=== PATIENT | female | born 1975 | race American Indian/Alaskan Native ===

== ENCOUNTER 2016-12-07 13:23 | Observation (INO) | payer OTHER ==
[2016-12-07 13:32] VITALS: TEMP 98.1
--- NOTE | 2016-12-07 14:07 | ED PDOC ---
Arrival/HPI - General Chief Complaint: Abdominal Pain Time Seen by Provider: 12/07/16 13:27 - History of Present Illness Narrative History of Present Illness (Text): 41 year old female with a past medical history of PCOS and DM who is presenting with one week of lower abdominal pain and intermenstrual bleeding. She states that the pain was initially a 3/10, responded to Naproxen, but in the past day has worsened acutely since 11:00 and is associated with nausea and vomiting. LMP was 11/28/16 12/07/16 20:35 (Compa Ruiz) Past Medical History - Provider Review Nursing Documentation Reviewed: Yes - Cardiac Hx Cardiac Disorders: No - Pulmonary Hx Respiratory Disorders: No - Neurological Hx Neurological Disorder: No - HEENT Hx HEENT Disorder: No - Renal Hx Renal Disorder: No - Endocrine/Metabolic Hx Endocrine Disorders: Yes Hx Diabetes Mellitus Type 2: Yes Hx Hypothyroidism: Yes - Hematological/Oncological Hx Blood Disorders: No - Integumentary Hx Dermatological Disorder: No - Musculoskeletal/Rheumatological Hx Musculoskeletal Disorders: Yes Hx Arthritis: Yes Hx Fractures: Yes (left tibia as a child) - Gastrointestinal Hx Gastrointestinal Disorders: No - Genitourinary/Gynecological Hx Genitourinary Disorders: No - Psychiatric Hx Psychophysiologic Disorder: No Hx Substance Use: Yes (marijuana) - Surgical History Hx Cholecystectomy: Yes Other/Comment: lt tibia sx Family/Social History - Physician Review Nursing Documentation Reviewed: Yes Family/Social History: No Known Family HX Smoking Status: Light Smoker < 10 Cigarettes Daily Hx Alcohol Use: No Hx Substance Use: Yes (marijuana) Substance used: thc Allergies/Home Meds Allergies/Adverse Reactions: Allergies tomato Allergy (Verified 12/07/16 13:32) RASH Home Medications: Home Meds Medication Instructions Recorded Confirmed Levothyroxine [Synthroid] 0 mg PO DAILY 12/07/16 12/07/16 Meloxicam [Mobic] 15 mg PO DAILY 12/07/16 12/07/16 MetFORMIN [glucoPHAGE] 500 mg PO DAILY 12/07/16 12/07/16 Review of Systems - Review of Systems Constitutional: absent: Fatigue, Weight Change, Fevers Eyes: absent: Vision Changes, Photophobia ENT: absent: Hearing Changes, Tinnitus, Epistaxis Respiratory: absent: SOB, Sputum, Wheezing Cardiovascular: absent: Chest Pain, Palpitations, Edema Gastrointestinal: Abdominal Pain, Diarrhea, Vomiting Genitourinary Female: Vaginal Bleeding. absent: Dysuria, Frequency Skin: Normal. absent: Rash, Pruritis, Laceration Neurological: Normal. absent: Headache, Speech Changes Hemo/Lymphatic: absent: Easy Bleeding, Easy Bruising Psychiatric: absent: Anxiety, Depression Physical Exam Temperature: Afebrile Blood Pressure: Normal Pulse: Regular Respiratory Rate: Normal Appearance: Positive for: Uncomfortable Pain Distress: Moderate Mental Status: Positive for: Alert and Oriented X 3 - Systems Exam Head: Present: Atraumatic, Normocephalic Pupils: Present: PERRL Extroacular Muscles: Present: EOMI Conjunctiva: Present: Normal Mouth: Present: Moist Mucous Membranes Neck: No: JVD, Lymphadenopathy Respiratory/Chest: Present: Clear to Auscultation. No: Respiratory Distress Cardiovascular: Present: Regular Rate and Rhythm, Normal S1, S2 Abdomen: Present: Tenderness (midline), Normal Bowel Sounds. No: Distention, Peritoneal Signs, Guarding Upper Extremity: Present: Normal Inspection, NORMAL PULSES Neurological: Present: CN II-XII Intact, Speech Normal Skin: No: Warm, Dry Psychiatric: Present: Alert, Oriented x 3, Normal Insight Vital Signs Temp Pulse Resp BP Pulse Ox 12/07/16 19:01 72 18 115/64 98 12/07/16 17:23 75 18 117/70 100 12/07/16 15:23 74 18 112/71 97 12/07/16 14:52 76 18 135/71 99 12/07/16 13:29 98.1 F 89 16 130/85 99 Medical Decision Making ED Course and Treatment: Seen and examined with resident. 41 year old F p/w abdominal pain x 1 week with vomiting. On exam, no guarding or rebound. (Vincent Peña) CBC, CMP, UA were equivocal. CT A/P with IV contrast IMPRESSION: 620 mm complex cystic lesion seen at the cul -de-sac/left side of the lower uterine segment suspicious for either complex adnexal changes or possible hydrosalpinx. Follow-up transvaginal pelvic ultrasound is advised. 2. 2.6 cm left adrenal nodule. Follow-up MRI is advised to exclude potential malignancy as this density is not low left to prove a benign adenoma here. A tiny nodules too small to characterize at the right adrenal gland. 3. Prior cholecystectomy. TVUS: FINDINGS: Uterus/cervix: Probable fundal fibroid anteriorly measures 2.5 x 2.9 cm Nabothian cysts in the cervix. Normal endometrial stripe thickness. 1 cm Right ovary: Blood flow is noted within both ovaries. Left ovary: Blood flow documented. There is a complex appearing septated cysts or multiple loculated cysts in the left ovary including a 4 x 3 x 3.4 cm collection which may represent a hemorrhagic cyst however is nonspecific in appearance. There is an adjacent small simple cyst in the left ovary. Free fluid: No free fluid. IMPRESSION: 1. Blood flow is noted within both ovaries. 2. There is a complex appearing septated cysts or multiple loculated cysts in the left ovary including a 4 x 3 x 3.4 cm collection which may represent a hemorrhagic cyst however is nonspecific in appearance. There is an adjacent small simple cyst in the left ovary. 12/07/16 20:22 (Compa Ruiz) - Lab Interpretations Lab Results: 12/07/16 14:20 12/07/16 14:20 Lab Results 12/07/16 14:20: Urine Color Yellow, Urine Appearance Clear, Urine pH 6.0, Ur Specific [place] >= 1.030, Urine Protein Trace H, Urine Glucose (UA) Negative, Urine Ketones Negative, Urine Blood Trace-intact H, Urine Nitrate Negative, Urine Bilirubin Negative, Urine Urobilinogen 0.2, Ur Leukocyte Esterase Negative , Urine RBC 0 - 2, Urine WBC 0 - 2, Ur Epithelial Cells 4 - 5, Calcium Oxalate Crystal Few, Urine Bacteria Few, Urine HCG, Qual Negative 12/07/16 14:20: Sodium 141, Potassium 3.4 L, Chloride 105, Carbon Dioxide 27, Anion Gap 12, BUN 8, Creatinine 0.6, Est GFR ( Amer) > 60, Est GFR (Non- Af Amer) > 60, Random Glucose 109, Calcium 9.0, Total Bilirubin 0.9, AST 17, ALT 28, Alkaline Phosphatase 60, Total Protein 7.0, Albumin 4.1, Globulin 2.9, Albumin/Globulin Ratio 1.4, Lipase 627 H 12/07/16 14:20: WBC 8.1, RBC 4.24, Hgb 12.6, Hct 38.3, MCV 90.3, MCH 29.7, MCHC 32.9, RDW 14.2, Plt Count 291, MPV 9.9, Gran % 61.7, Lymph % (Auto) 25.7, Smith % (Auto) 9.8 H, Eos % (Auto) 2.6, Baso % (Auto) 0.2, Gran # 4.97, Lymph # 2.1, Smith # 0.8 H, Eos # 0.2, Baso # 0.02 - RAD Interpretation Radiology Orders: 12/07/16 14:16 ABD & PELVIS IV CONTRAST ONLY [CT] Stat 12/07/16 17:44 TRANSVAGINAL [US] Stat - Medication Orders Current Medication Orders: Discontinued Medications Sodium Chloride (Sodium Chloride 0.9%) 1,000 mls @ 999 mls/hr IV .Q1H1M STA Stop: 12/07/16 15:13 Last Admin: 12/07/16 14:39 Dose: 999 mls/hr eMAR Start Stop Document 12/07/16 14:39 [facility] (Rec: 12/07/16 14:40 [place] [id number]) Intravenous Solution Start Date 12/07/16 Start Time 14:40 Morphine Sulfate (Morphine) 4 mg IVP STAT STA Stop: 12/07/16 14:18 Last Admin: 12/07/16 14:40 Dose: 4 mg MAR Pain Assessment Document 12/07/16 14:40 NH (Rec: 12/07/16 14:40 [place] [id number]) Pain Reassessment Is this a pain reassessment? No Sleep Is patient sleeping during reassessment? No Presence of Pain Presence of Pain Yes Pain Scale Used Pain Scale Used Numeric Location Pain Location Body Site Abdomen Description Description Constant Intensity of Pain at present 8 Acceptable Level of Pain 2 IVP Administration Document 12/07/16 14:40 [facility] (Rec: 12/07/16 14:[address] [facility] [id number] Charges for Administration # of IVP Administrations 1 Morphine Sulfate (Morphine) 2 mg IVP STAT STA Stop: 12/07/16 20:16 Ondansetron HCl (Zofran Inj) 4 mg IVP STAT STA Stop: 12/07/16 14:19 Last Admin: 12/07/16 14:42 Dose: 4 mg IVP Administration Document 12/07/16 14:42 NH (Rec: 12/07/16 14:42 [place] [id number]) Charges for Administration # of IVP Administrations 1 Ondansetron HCl (Zofran Inj) 4 mg IVP STAT STA Stop: 12/07/16 20:16 ED OBSERVATION Date of observation admission: 12/07/16 Time of observation admission: 14:30 - Observation admission statement Patient is being placed in observation because:: abdominal pain (Compa Ruiz) - Goals of Observation Goals of observation are:: CT imaging (Compa Ruiz) - Progress Note Progress Note: 12/07/16 14:30 Patient with abdominal tenderness, pending CT. 12/07/16 16:[address], patient in NAD. 12/07/16 18:27 CT shows adnexal cyst, TVUS recommended. TVUS read pending, patient in NAD. 12/07/16 19:43 Patient agreeable to be discharged.Discussed findings of the TVUS. Patient is tolerating PO intake well. Patient's pain has resolved. Informed her to follow up with her OBGYN. 12/07/16 20:35 (Compa Ruiz) Disposition/Present on Arrival - Present on Arrival Any Indicators Present on Arrival: No History of DVT/PE: No History of Uncontrolled Diabetes: No Urinary Catheter: No History of Decub. Ulcer: No History Surgical Site Infection Following: None - Disposition Have Diagnosis and Disposition been Completed?: Yes Disposition Time: 20:38 Patient Plan: Discharge - Disposition Diagnosis: Ovarian cyst Disposition: HOME/ ROUTINE Patient Problems: Current Active Problems Problem Status Onset Ovarian cyst Acute Condition: FAIR Discharge Instructions (ExitCare): Ovarian Cyst (ED), Polycystic Ovarian Syndrome (ED) Additional Instructions: [Mrs. David], thank you for letting us take care of you today. Your provider was [Dr. Peña and Dr. Ruiz]. You were treated for [Ovarian Cyst]. The emergency medical care you received today was directed at your acute symptoms. If you were prescribed any medication, please fill it and take as directed. It may take several days for your symptoms to resolve. Return to the Emergency Department if your symptoms worsen, do not improve, or if you have any other problems. Please contact your doctor or call one of the physicians/clinics you have been referred to that are listed on the Patient Visit Information form that is included in your discharge packet. Bring any paperwork you were given at discharge with you along with any medications you are taking to your follow up visit. Our treatment cannot replace ongoing medical care by a primary care provider (PCP) outside of the emergency department. Thank you for allowing the [facility] team to be part of your care today. If you had an X-Ray or CT scan: A Radiologist will review the ED reading if any change in treatment is needed we will contact you. If you had a blood, urine, or wound culture: It will take several days for the results, if any change in treatment is needed we will contact you. If you had an STI test: It will take 48 hours for the results. Please call after 1 week if you have not heard back. Referrals: PCP,NO [Primary Care Provider] - Follow up with primary Forms: [employer] (Danish)
[2016-12-07] MEDS ORDERED: Sodium Chloride 0.9% 1,000 ML IV STA (14:13)
[2016-12-07] MEDS ORDERED: Morphine 4 mg/ml ISec IVP STA (14:17)
[2016-12-07 14:51] LABS: BASO # 0.02 K/mm3 (0.0-2.0); BASO % 0.2 % (0.0-3.0); EOS # 0.2 (0.0-0.7); EOS % 2.6 % (1.5-5.0); GRAN # 4.97 (1.4-6.5); GRAN % 61.7 % (50.0-68.0); HEMATOCRIT 38.3 % (36.0-48.0); LYMPH # 2.1 (1.2-3.4); LYMPH % 25.7 % (22.0-35.0); MEAN CELL VOLUME 90.3 fl (80.0-105.0); MEAN CORPUSCULAR HEMOGLOBIN 29.7 pg (25.0-35.0); MEAN CORPUSCULAR HGB CONC 32.9 g/dl (31.0-37.0); MEAN PLATELET VOLUME 9.9 fl (7.0-11.0); MONO # 0.8 (0.1-0.6); MONO % 9.8 % (1.0-6.0); RED CELL DISTRIBUTION WIDTH 14.2 % (11.5-14.5); WHITE BLOOD COUNT 8.1 10^3/ul (4.5-11.0)
[2016-12-07 14:53] LABS: URINE BILIRUBIN NEGATIVE (NEGATIVE); URINE BLOOD TRACE-INTACT (NEGATIVE); URINE GLUCOSE (UA) NEGATIVE (NEGATIVE); URINE KETONE NEGATIVE (NEGATIVE); URINE LEUKOCYTE ESTERASE NEGATIVE Leu/uL (NEGATIVE); URINE PROTEIN TRACE mg/dL (<30 mg/dL); URINE UROBILINOGEN 0.2 E.U./dL (<1 E.U./dL)
[2016-12-07 14:59] LABS: URINE APPEARANCE CLEAR (CLEAR); URINE COLOR YELLOW (YELLOW)
[2016-12-07 15:01] LABS: ALB/GLOB RATIO 1.4 (1.1-1.8); ALKALINE PHOSPHATASE 60 U/L (38-126); ALT/SGPT 28 U/L (7-56); AST/SGOT 17 U/L (14-36); BILIRUBIN,TOTAL 0.9 mg/dL (0.2-1.3); BLOOD UREA NITROGEN 8 mg/dL (7-21); CARBON DIOXIDE 27 mmol/L (21-33); CHLORIDE 105 mmol/L (98-107); GFR AFRICAN-AMERICAN > 60; GLUCOSE,RANDOM 109 mg/dL (70-110); LIPASE 627 U/L (23-300); POTASSIUM 3.4 mmol/L (3.6-5.0); SODIUM 141 mmol/L (132-148)
[2016-12-07 15:04] LABS: URINE RBC 0 - 2 /hpf (0-2); URINE WBC 0 - 2 /hpf (0-6)
[2016-12-07 15:05] LABS: URINE BACTERIA FEW (NEG); URINE CALCIUM OXALATE CRYSTALS FEW /hpf
[2016-12-07] MEDS ORDERED: Iohexol 350 MG/100 ML VIAL ONE (16:48)
--- NOTE | 2016-12-07 17:34 | CT ---
PROCEDURE: CT Abdomen and Pelvis with contrast HISTORY: abdominal pain COMPARISON: None. TECHNIQUE: Following the intravenous administration of iodinated contrast material, a CT examination of the abdomen and pelvis performed from the domes of the diaphragms to the symphysis pubis with reformatted datasets provided not only axial but also sagittal and coronal planes. Oral contrast was not administered as per referring physician request. Contrast dose: Omnipaque 350, 100 cc. Radiation dose: Total exam DLP = 1146.10 mGy-cm. This CT exam was performed using one or more of the following dose reduction techniques: Automated exposure control, adjustment of the mA and/or kV according to patient size, and/or use of iterative reconstruction technique. FINDINGS: LOWER THORAX: Unremarkable. LIVER: Unremarkable. No gross lesion or ductal dilatation. GALLBLADDER AND BILE DUCTS: Prior cholecystectomy. PANCREAS: Unremarkable. No gross lesion or ductal dilatation. SPLEEN: Unremarkable. ADRENALS: Bilateral adrenal nodules are identified too small to characterize in the right of measuring only 8 mm with a 2.0 cm left adrenal nodule which appears relatively lucent but measures 20 hounsfield units and cannot be proven to be benign at this time. Follow-up mri with chemical shift is advised to evaluate for possible malignant lesion here versus benign adenoma. KIDNEYS AND URETERS: Unremarkable. No hydronephrosis. No solid mass. VASCULATURE: Unremarkable. No aortic aneurysm. BOWEL: Unremarkable. No obstruction. No gross mural thickening. APPENDIX: Normal appendix. PERITONEUM: Unremarkable. No free fluid. No free air. LYMPH NODES: Unremarkable. No enlarged lymph nodes. BLADDER: Unremarkable. REPRODUCTIVE: Complex cystic structure seen at the cul-de-sac/ left side of the lower uterine segment suspicious for prominent left adnexal cystic change measuring 6.8 x 3.7 cm. Hydrosalpinx is not completely excluded here. Transvaginal pelvic ultrasound is advised for correlation. BONES: No acute fracture. OTHER FINDINGS: Small umbilical hernia is identified containing only mesenteric fat. IMPRESSION: 1. 620 cm complex cystic lesion seen at the cul-de-sac/left side of the lower uterine segment suspicious for either complex adnexal changes or possible hydrosalpinx. Follow-up transvaginal pelvic ultrasound is advised. 2. 2.6 cm left adrenal nodule. Follow-up MRI is advised to exclude potential malignancy as this density is not low left to prove a benign adenoma here. A tiny nodules too small to characterize at the right adrenal gland. 3. Prior cholecystectomy.
[2016-12-07 19:02] VITALS: BP 115/64; PULSE 72; RESP 18; O2SAT 98
[2016-12-07] MEDS ORDERED: Morphine 2 mg/ml ISec IVP STA (20:15)
--- NOTE | 2016-12-08 08:52 | US ---
HISTORY: abd pain, vag bleeding, r/o torsion COMPARISON: None available. TECHNIQUE: Transabdominal and transvaginal FINDINGS: UTERUS: Measures 10.0 x 6.7 x 6.7 cm. Anterior fundal subserosal fibroid, 0 4.2 x 4.1 x 3.9 cm. No other discrete mass identified ENDOMETRIUM: Measures 11 mm in diameter. Unremarkable. CERVIX: No cervical abnormality identified. RIGHT OVARY: Measures 2.8 x 2.1 x 3.1 cm. No solid mass. Normal flow. LEFT OVARY: Measures 7.3 x 3.4 x 4.0 cm. Complex cystic mass versus hydrosalpinx. Low level homogeneous internal echoes. Possible septated cyst versus hydrosalpinx. This could also represent 2 adjacent complex cysts. This measures approximately 3.1 x 4.8 by 3.1 cm. Normal flow. FREE FLUID: No significant free fluid noted. OTHER FINDINGS: None. IMPRESSION: Complex left adnexal cystic structure, septated cyst versus 2 adjacent cysts versus hydrosalpinx. 4.8 cm greatest dimension. Recommend followup transvaginal pelvic ultrasound examination 6-8 weeks. No other significant abnormality. Preliminary interpretation of this examination was reported by [facility] at 7:50 p.m. on 12/07/2016. There is concurrence of this report with the preliminary interpretation.
== END 2016-12-07 21:18 | disposition home or self-care (01) ==
LOC: ED 13:23 → EROBSV 14:30
PROVIDERS: ADMIT Student in an Organized Health Care Education/Training Program; ATTEND Student in an Organized Health Care Education/Training Program
DX: N83.202 Unspecified ovarian cyst, left side (principal)
CPT/HCPCS: 74177; 76830; 80053; 81001; 83690; 84703; 85025; 96374; 96375; 99285; G0378; J2270; J2405; J7040; Q9967

== ENCOUNTER 2017-05-06 11:49 | Inpatient (IN) | payer OTHER ==
[2017-05-06 11:54] VITALS: BMI 36.0
[2017-05-06] MEDS ORDERED: Sodium Chloride 0.9% 1,000 ML IV STA (12:10)
[2017-05-06] MEDS ORDERED: Morphine 4 mg/ml ISec IVP STA (12:17)
--- NOTE | 2017-05-06 12:19 | ED PDOC ---
Arrival/HPI - General Chief Complaint: GI Problem Time Seen by Provider: 05/06/17 12:10 Historian: Patient - History of Present Illness Narrative History of Present Illness (Text): you were treated in the ED today for nausea/vomiting with dark color and epigastric discomfort but otherwise without any headache/dizziness/difficulty breathing/chest pain/numbness/tingling/loss of limb function/pain with urination. Symptom Onset: Gradual Symptom Course: Unchanged Quality: Aching Severity Level: 5 Activities at Onset: Rest Context: Sitting Past Medical History - Provider Review Nursing Documentation Reviewed: Yes - Travel History Have you recently traveled outside [place] w/in the past 3 mons?: No - Infectious Disease Hx of Infectious Diseases: None - Cardiac Hx Cardiac Disorders: No - Pulmonary Hx Respiratory Disorders: No - Neurological Hx Neurological Disorder: No - HEENT Hx HEENT Disorder: No - Renal Hx Renal Disorder: No - Endocrine/Metabolic Hx Endocrine Disorders: Yes Hx Diabetes Mellitus Type 2: Yes Hx Hypothyroidism: Yes - Hematological/Oncological Hx Blood Disorders: No - Integumentary Hx Dermatological Disorder: No - Musculoskeletal/Rheumatological Hx Musculoskeletal Disorders: Yes Hx Arthritis: Yes Hx Fractures: Yes (left tibia as a child) - Gastrointestinal Hx Gastrointestinal Disorders: No - Genitourinary/Gynecological Hx Genitourinary Disorders: No - Psychiatric Hx Psychophysiologic Disorder: No Hx Substance Use: Yes (marijuana) - Surgical History Hx Cholecystectomy: Yes Other/Comment: lt tibia sx - Anesthesia Hx Anesthesia: Yes Hx Anesthesia Reactions: No Hx Malignant Hyperthermia: No Family/Social History - Physician Review Nursing Documentation Reviewed: Yes Family/Social History: No Known Family HX Smoking Status: Light Smoker < 10 Cigarettes Daily Hx Alcohol Use: No Hx Substance Use: Yes (marijuana) Substance used: thc Allergies/Home Meds Allergies/Adverse Reactions: Allergies tomato Allergy (Verified 12/07/16 13:32) RASH Home Medications: Home Meds Medication Instructions Recorded Confirmed No Known Home Med 05/06/17 05/06/17 Review of Systems - Review of Systems Constitutional: Normal Eyes: Normal ENT: Normal Respiratory: Normal Cardiovascular: Normal Gastrointestinal: Abdominal Pain, Nausea, Vomiting, Hematemesis Genitourinary Female: Normal Musculoskeletal: Normal Skin: Normal Neurological: Normal Endocrine: Normal Hemo/Lymphatic: Normal Psychiatric: Normal Physical Exam Vital Signs Reviewed: Yes Vital Signs Temp Pulse Resp BP Pulse Ox 05/06/17 16:00 86 18 128/80 98 05/06/17 13:55 91 H 18 130/82 98 05/06/17 12:03 98.2 F 106 H 20 171/131 H 98 Temperature: Afebrile Blood Pressure: Hypertensive Pulse: Tachycardic Respiratory Rate: Normal Appearance: Positive for: Uncomfortable Pain Distress: None Mental Status: Positive for: Alert and Oriented X 3 Finger Stick Blood Glucose: 105 - Systems Exam Head: Present: Atraumatic, Normocephalic Pupils: Present: PERRL Extroacular Muscles: Present: EOMI Conjunctiva: Present: Normal Ears: Present: Normal Mouth: Present: Moist Mucous Membranes Pharnyx: Present: Normal Nose (Internal): Present: Normal Inspection Neck: Present: Normal Range of Motion Respiratory/Chest: Present: Clear to Auscultation, Good Air Exchange Cardiovascular: Present: Regular Rate and Rhythm Abdomen: Present: Tenderness, Other (epigastric discomfort, wo any other tenderness). No: Distention, Normal Bowel Sounds, Peritoneal Signs, Rebound, Guarding, McBurney's Point Tender, Rovsing's Sign Present, Hernias, Feeding Tubes, Ostomy Tubes, Mass/Organomegaly, Scars Back: Present: Normal Inspection Upper Extremity: Present: Normal Inspection Lower Extremity: Present: Normal Inspection Neurological: Present: GCS=15, CN II-XII Intact, Speech Normal, Motor Func Grossly Intact Skin: Present: Warm, Normal Color Psychiatric: Present: Alert, Oriented x 3, Normal Insight, Normal Concentration Medical Decision Making ED Course and Treatment: you were treated in the ED today for nausea/vomiting with dark color and epigastric discomfort but otherwise without any headache/dizziness/difficulty breathing/chest pain/numbness/tingling/loss of limb function/pain with urination. You were otherwise breathing easily, pink moist lips, talking easily , good strength/sensation, alert/oriented, walking easily, clear lungs, mild epigastric abdomen tenderness, no fever temp 98.2, fast heart rate 106, stable breathing rate 20, excellent oxygen level 98% room air, elevated blood pressure 171/31 which we recommend repeat in 2-3 days primary care office to determine further treatment, you have blood tests no infection count WBC 9.2, stable blood level hemoglobin 13.9/platelets 346, stable chemistry sodium 143, potassium 3.5, bicarbonate 23, chloride 107, bun 7, creatinine 0.8, glucose 107 , liver AST/ALT 21/24, Liver Alklaline Phosphatase 78, Liver bilirubin 0.6, magnesium, heart blood test normal, urine test, urine test negative, urine drug screen positive for canabinoids/opiates/cocaine, radiology ct chest no acute pathology or suspicious lesion and ct abdomen/pelvis right and left adrenal lesions/re-demonstrated complex cystic mass posterior to the uterus on the left 6.6x4cm/interval development of right adnexal cyst 1.3cm, ECG sinus tachycardia, protonix/intravenous fluids/morphine/zofran, observation done in the ED without improvement, counselled to stop using drugs and you had persistent epigastric discomfort thus will admit. 05/06/17 15:52 05/06/17 15:54 05/06/17 18:03 05/06/17 18:23 d/w Dr. Blake who will admit to observation. - Lab Interpretations Lab Results: 05/06/17 12:17 05/06/17 12:17 Lab Results 05/06/17 15:50: pO2 40, VBG pH 7.31 L, VBG pCO2 51.0, VBG HCO3 25.7, VBG Total CO2 27.3, VBG O2 Sat (Calc) 79.0 H, VBG Base Excess -1.2 L, VBG Potassium 3.8, Glucose 90, Lactate 0.9, FiO2 21.0, Sodium 140.0, Chloride 109.0 H, Venous Blood Potassium 3.8 05/06/17 14:10: Urine Opiates Screen Positive H, Urine Methadone Screen Negative , Ur Barbiturates Screen Negative, Ur Phencyclidine Scrn Negative, Ur Amphetamines Screen Negative, U Benzodiazepines Scrn Negative, U Oth Cocaine Metabols Positive H, U Cannabinoids Screen Positive H 05/06/17 12:40: Urine Color Yellow, Urine Appearance Clear, Urine pH 8.0, Ur Specific Wood 1.015, Urine Protein Trace H, Urine Glucose (UA) Negative, Urine Ketones Trace H, Urine Blood Trace-intact H, Urine Nitrate Negative, Urine Bilirubin Negative, Urine Urobilinogen 0.2, Ur Leukocyte Esterase Negative , Urine RBC 2 - 5, Urine WBC 0 - 2, Ur Epithelial Cells 4 - 5, Amorphous Sediment Moderate, Urine Bacteria Many, Urine Other Uyeast 05/06/17 12:30: pO2 150 H, VBG pH 7.44 H, VBG pCO2 33.0 L, VBG HCO3 22.4, VBG Total CO2 23.4, VBG O2 Sat (Calc) 100.0 H, VBG Base Excess -1.1 L, VBG Potassium 3.5 L, Glucose 108 H, Lactate 2.1, FiO2 21.0, Sodium 140.0, Chloride 108.0 H, Venous Blood Potassium 3.5 L 05/06/17 12:17: PT 12.0, INR 1.04, APTT 26.5 05/06/17 12:17: WBC 9.2, RBC 4.70, Hgb 13.9, Hct 41.7, MCV 88.7, MCH 29.6, MCHC 33.3, RDW 13.9, Plt Count 346, MPV 9.6, Gran % 68.8 H, Lymph % (Auto) 23.0, Lake % (Auto) 7.8 H, Eos % (Auto) 0.3 L, Baso % (Auto) 0.1, Gran # 6.31, Lymph # (Auto) 2.1, Lake # (Auto) 0.7 H, Eos # (Auto) 0.0, Baso # (Auto) 0.01 05/06/17 12:17: Sodium 145, Potassium 3.5 L, Chloride 107, Carbon Dioxide 23, Anion Gap 18, BUN 7, Creatinine 0.8, Est GFR ( Amer) > 60, Est GFR (Non- Af Amer) > 60, Random Glucose 107, Calcium 10.5, Total Bilirubin 0.6, AST 21, ALT 24, Alkaline Phosphatase 78, Troponin I < 0.01, Total Protein 8.2, Albumin 4.6, Globulin 3.6, Albumin/Globulin Ratio 1.3, Lipase 360 H 05/06/17 12:15: Blood Type B POSITIVE, Antibody Screen Negative, BBK History Checked No verified bt 05/06/17 12:10: POC Glucose (mg/dL) 105 - RAD Interpretation Radiology Orders: 05/06/17 12:11 CHEST,ABD,PEL W/IV CONT ONLY [CT] Stat - EKG Interpretation Interpreted by ED Physician: Yes (sinus tachycardia) Type: 12 lead EKG - Medication Orders Current Medication Orders: Discontinued Medications Sodium Chloride (Sodium Chloride 0.9%) 1,000 mls @ 999 mls/hr IV .Q1H1M STA Stop: 05/06/17 13:10 Last Admin: 05/06/17 12:17 Dose: 999 mls/hr eMAR Start Stop Document 05/06/17 12:17 EQ (Rec: 05/06/17 12:18 EQ [id number]) Intravenous Solution Start Date 05/06/17 Start Time 12:17 Morphine Sulfate (Morphine) 4 mg IVP STAT STA Stop: 05/06/17 12:18 Last Admin: 05/06/17 12:32 Dose: 4 mg MAR Pain Assessment Document 05/06/17 12:32 EQ (Rec: 05/06/17 12:33 EQ [id number]) Pain Reassessment Is this a pain reassessment? No Sleep Is patient sleeping during reassessment? No Presence of Pain Presence of Pain Yes Pain Scale Used Pain Scale Used Numeric Location Upper or Lower Upper Pain Location Body Site Abdomen Description Description Constant Intensity of Pain at present 10 IVP Administration Document 05/06/17 12:32 EQ (Rec: 05/06/17 12:33 EQ [id number]) Charges for Administration # of IVP Administrations 1 Ondansetron HCl (Zofran Inj) 4 mg IVP STAT STA Stop: 05/06/17 12:11 Last Admin: 05/06/17 12:18 Dose: 4 mg IVP Administration Document 05/06/17 12:18 EQ (Rec: 05/06/17 12:18 EQ [id number]) Charges for Administration # of IVP Administrations 1 Ondansetron HCl (Zofran Inj) 4 mg IVP STAT STA Stop: 05/06/17 17:36 Last Admin: 05/06/17 17:37 Dose: 4 mg IVP Administration Document 05/06/17 17:37 EQ (Rec: 05/06/17 17:37 EQ [id number]) Charges for Administration # of IVP Administrations 1 Pantoprazole Sodium (Protonix Inj) 40 mg IVP STAT STA Stop: 05/06/17 12:14 Last Admin: 05/06/17 12:18 Dose: 40 mg IVP Administration Document 05/06/17 12:18 EQ (Rec: 05/06/17 12:18 EQ [id number]) Charges for Administration # of IVP Administrations 1 Pantoprazole Sodium (Protonix Inj) 40 mg IVP STAT STA Stop: 05/06/17 16:54 Last Admin: 05/06/17 17:36 Dose: 40 mg IVP Administration Document 05/06/17 17:36 EQ (Rec: 05/06/17 17:36 EQ [id number]) Charges for Administration # of IVP Administrations 1 Disposition/Present on Arrival - Present on Arrival Any Indicators Present on Arrival: No History of DVT/PE: No History of Uncontrolled Diabetes: No Urinary Catheter: No History of Decub. Ulcer: No History Surgical Site Infection Following: None - Disposition Have Diagnosis and Disposition been Completed?: Yes Diagnosis: Hematemesis, Gastritis Disposition: HOSPITALIZED Disposition Time: 18:25 Patient Plan: Admission Condition: STABLE Referrals: Reyna Sanders MD [Primary Care Provider] - Follow up with primary Forms: [employer] ([place]ian)
[2017-05-06 12:26] LABS: BASO # 0.01 K/mm3 (0.0-2.0); BASO % 0.1 % (0.0-3.0); EOS % 0.3 % (1.5-5.0); GRAN # 6.31 (1.4-6.5); GRAN % 68.8 % (50.0-68.0); HEMOGLOBIN 13.9 g/dL (12.0-16.0); LYMPH # 2.1 (1.2-3.4); MEAN CELL VOLUME 88.7 fl (80.0-105.0); MEAN CORPUSCULAR HEMOGLOBIN 29.6 pg (25.0-35.0); MEAN CORPUSCULAR HGB CONC 33.3 g/dl (31.0-37.0); MEAN PLATELET VOLUME 9.6 fl (7.0-11.0); MONO # 0.7 (0.1-0.6); MONO % 7.8 % (1.0-6.0); RBC 4.7 10^6/uL (3.5-6.1); RED CELL DISTRIBUTION WIDTH 13.9 % (11.5-14.5); WHITE BLOOD COUNT 9.2 10^3/ul (4.5-11.0)
[2017-05-06 12:35] LABS: INR 1.04 (0.93-1.08); PARTIAL THROMBOPLASTIN TIME 26.5 Seconds (25.1-36.5)
[2017-05-06 12:40] LABS: ALB/GLOB RATIO 1.3 (1.1-1.8); ALBUMIN 4.6 g/dL (3.0-4.8); ALT/SGPT 24 U/L (7-56); AST/SGOT 21 U/L (14-36); BLOOD UREA NITROGEN 7 mg/dL (7-21); CALCIUM 10.5 mg/dL (8.4-10.5); GFR AFRICAN-AMERICAN > 60; GFR NON-AFRICAN AMERICAN > 60; LIPASE 360 U/L (23-300)
[2017-05-06 12:41] LABS: VENOUS BLOOD GAS BASE EXCESS -1.1 mmol/L (0.0-2.0); VENOUS BLOOD GAS PO2 150 mm/Hg (30-55); VENOUS BLOOD PH 7.44 (7.32-7.43)
[2017-05-06 12:50] LABS: TROPONIN I < 0.01 ng/mL
[2017-05-06 12:53] LABS: URINE APPEARANCE CLEAR (CLEAR); URINE BILIRUBIN NEGATIVE (NEGATIVE); URINE BLOOD TRACE-INTACT (NEGATIVE); URINE COLOR YELLOW (YELLOW); URINE GLUCOSE (UA) NEGATIVE (NEGATIVE); URINE LEUKOCYTE ESTERASE NEGATIVE Leu/uL (NEGATIVE); URINE NITRATE NEGATIVE (NEGATIVE); URINE PROTEIN TRACE mg/dL (<30 mg/dL); URINE UROBILINOGEN 0.2 E.U./dL (<1 E.U./dL)
[2017-05-06 13:02] LABS: URINE WBC 0 - 2 /hpf (0-6)
[2017-05-06 13:03] LABS: URINE AMORPHOUS SEDIMENT MODERATE; URINE BACTERIA MANY (NEG)
[2017-05-06] MEDS ORDERED: Iohexol 350 MG/100 ML VIAL ONE (13:38)
--- NOTE | 2017-05-06 14:54 | CT ---
PROCEDURE: CT Chest, Abdomen and Pelvis with intravenous contrast HISTORY: abd pain COMPARISON: Comparison is made with the previous study dated 12/07/2016 TECHNIQUE: IV dose administered: 100 mL Omniscan 350. Axial and reformatted coronal and sagittal CT images of the chest abdomen and pelvis were obtained after IV contrast administration. Radiation dose: Total exam DLP = 1557.79 mGy-cm. This CT exam was performed using one or more of the following dose reduction techniques: Automated exposure control, adjustment of the mA and/or kV according to patient size, and/or use of iterative reconstruction technique. FINDINGS: CT CHEST WITH CONTRAST: LUNGS: Clear. No nodule, mass or consolidation. MEDIASTINUM: Unremarkable. Normal caliber aorta and pulmonary arterial trunk. No aortic dissection. Normal size heart. LYMPH NODES: Unremarkable. PLEURA: Unremarkable. No pneumothorax. No pleural fluid. BONES: Unremarkable. OTHER FINDINGS: None. CT ABDOMEN AND PELVIS: LIVER: Mild hepatomegaly is again noted. Mild hepatic steatosis is also noted. The portal vein is patent. No evidence of enhancing mass lesion in the liver. GALLBLADDER AND BILE DUCTS: Status post cholecystectomy. PANCREAS: Unremarkable. No gross lesion or ductal dilatation. SPLEEN: Unremarkable. ADRENALS: Left adrenal nodule/small mass measures 2.1 centimeter is noted at these slightly larger compared to the previous exam. No significant interval change in the right adrenal gland since the previous exam. There is low-attenuation nodule at the right adrenal gland measures 1 centimeter. KIDNEYS AND URETERS: Unremarkable. No hydronephrosis. No solid mass. VASCULATURE: Unremarkable. No aortic aneurysm. BOWEL: Unremarkable. No obstruction. No gross mural thickening. APPENDIX: Normal appendix. PERITONEUM: Unremarkable. No free fluid. No free air. LYMPH NODES: No evidence of retroperitoneal lymphadenopathy. There are mildly enlarged bilateral pelvic sidewall lymph nodes again noted BLADDER: The urinary bladder is not distended therefore cannot be evaluated. REPRODUCTIVE: The uterus is heterogeneous mildly enlarged. Again seen is a complex low-attenuation cystic mass lesion posterior and slightly to the left of the uterus measures 6.6 centimeter in the largest transverse diameter and 4 centimeter in the AP diameter. The right adnexa is mildly enlarged contains 1.3 centimeters cyst. BONES: No acute fracture. OTHER FINDINGS: None. IMPRESSION: No evidence of acute pathology or suspicious lesion in the chest. Left adrenal heterogeneous slightly low-attenuation nodule/small mass measures 2.1 centimeter may be slightly larger compared to the previous exam. Although this may represent benign adenoma, the possibility of malignancy is not totally excluded. Further assessment by MRI is suggested. 1 centimeter low-attenuation nodule at the right adrenal gland. Re- demonstrated is complex cystic mass lesion posterior to the uterus slightly to the left of the midline may represent large is left adnexal complex cyst or hydrosalpinx. Interval appearance of 1.3 centimeters cyst at the right adnexa.
[2017-05-06 15:26] LABS: BARBITURATES, UR NEGATIVE (NEGATIVE)
[2017-05-06 15:45] LABS: BENZODIAZEPINES, UR NEGATIVE (NEGATIVE); OPIATES, UR POSITIVE (NEGATIVE); PHENCYCLIDINE, UR NEGATIVE (NEGATIVE)
[2017-05-06 16:33] LABS: VENOUS BLOOD GAS BASE EXCESS -1.2 mmol/L (0.0-2.0); VENOUS BLOOD GAS PO2 40 mm/Hg (30-55); VENOUS BLOOD PH 7.31 (7.32-7.43)
--- NOTE | 2017-05-06 16:33 | CARD ---
APPROVED REPORT EKG Measurement Heart [id number] <Conclusion> Sinus tachycardia Minimal voltage criteria for LVH, may be normal variant Borderline ECG
[2017-05-06] MEDS ORDERED: Potassium Chloride 20 mEq ER Tab PO STA (19:05)
[2017-05-06] MEDS: Sodium Chloride 0.9% 1,000 ML IV SCH (19:55)
[2017-05-06] MEDS ORDERED: Morphine 2 mg/ml ISec IVP PRN (20:01)
[2017-05-06] MEDS ORDERED: Vitamins A & D Oint UD Foilpak TOP PRN (20:01)
--- NOTE | 2017-05-06 20:36 | CP.PCM.HP ---
<Lamont Aviles - Last Filed: 05/06/17 20:24> History of Present Illness - History of Present Illness History of Present Illness: Ms. David is a 41 year old female with a past medical history significant for DM2, hypothyroidism and cholelithiasis s/p cholecystectomy (2003) who presents with 36 hours of epigastric pain, nausea and greater than 10 episodes of coffee ground emesis. Patient reports that she was at work yesterday evening when she drank a cup of coffee and immediately become nauseated. She subsequently had multiple episodes of brown colored emesis with associated intermittent epigastric pain. This continued throughout the night and this morning she attempted to relieve the nausea by smoking marijuana. She reports that this marijuana did not taste like the marijuana she has smoked in the past and made her immediately feel diaphoretic with palpitations and increased body warmth. She denies any alleviated or aggravating factors and can only associate her symptoms with the coffee she drank. She endorses that this has happened before in the past, specifically when she had her cholecystectomy in 2003, but denies ever having any endoscopy/colonoscopy done. She also endorse that she has been having intermittent "really dark" stool that is hard to pass, causing her to strain and at times vomit. She denies sick contacts, recurrent NSAID use, alcohol consumption, fevers, chills, headache, dysphagia, chest pain, SOB, cough , wheezing, diarrhea, hematochezia, changes in her urine or voiding, skin changes or any numbness/tingling/weakness of any extremity. 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 Allergies: Tomato Home Medications: Metformin and Hypothyroidism Present on Admission - Present on Admission Any Indicators Present on Admission: No Review of Systems - Review of Systems Review of Systems: As per HPI, otherwise negative Past Patient History - Infectious Disease Hx of Infectious Diseases: None - Past Social History Smoking Status: Light Smoker < 10 Cigarettes Daily - CARDIAC Hx Cardiac Disorders: No - PULMONARY Hx Respiratory Disorders: No - NEUROLOGICAL Hx Neurological Disorder: No - HEENT Hx HEENT Problems: No - RENAL Hx Chronic Kidney Disease: No - ENDOCRINE/METABOLIC Hx Endocrine Disorders: Yes Hx Diabetes Mellitus Type 2: Yes Hx Hypothyroidism: Yes - HEMATOLOGICAL/ONCOLOGICAL Hx Blood Disorders: No - INTEGUMENTARY Hx Dermatological Problems: No - MUSCULOSKELETAL/RHEUMATOLOGICAL Hx Musculoskeletal Disorders: Yes Hx Arthritis: Yes Hx Fractures: Yes (left tibia as a child) - GASTROINTESTINAL Hx Gastrointestinal Disorders: No - GENITOURINARY/GYNECOLOGICAL Hx Genitourinary Disorders: No - PSYCHIATRIC Hx Psychophysiologic Disorder: No Hx Substance Use: Yes (marijuana) - SURGICAL HISTORY Hx Cholecystectomy: Yes Other/Comment: lt tibia sx - ANESTHESIA Hx Anesthesia: Yes Hx Anesthesia Reactions: No Hx Malignant Hyperthermia: No Meds Allergies/Adverse Reactions: Allergies Allergy/AdvReac Type Severity Reaction Status Date / Time tomato Allergy RASH Verified 12/07/16 13:32 Physical Exam - Constitutional Appears: Non-toxic, No Acute Distress - Head Exam Head Exam: ATRAUMATIC, NORMOCEPHALIC - Eye Exam Eye Exam: EOMI, PERRL Pupil Exam: NORMAL ACCOMODATION - ENT Exam ENT Exam: Mucous Membranes Moist, Normal Exam - Neck Exam Neck exam: Positive for: Full Rom, Normal Inspection. Negative for: Lymphadenopathy - Respiratory Exam Respiratory Exam: Clear to Auscultation Bilateral, NORMAL BREATHING PATTERN. absent: Accessory Muscle Use, Decreased Breath Sounds, Rales, Rhonchi, Wheezes, Respiratory Distress - Cardiovascular Exam Cardiovascular Exam: REGULAR RHYTHM, RRR, +S1, +S2. absent: Tachycardia - GI/Abdominal Exam GI & Abdominal Exam: Normal Bowel Sounds, Soft. absent: Diminished Bowel Sounds , Distended, Firm, Guarding, Hernia, Hyperactive Bowel Sounds, Hypoactive Bowel Sounds, Rebound, Rigid, Tenderness - Extremities Exam Extremities exam: Positive for: full ROM, normal capillary refill, normal inspection, pedal pulses present. Negative for: calf tenderness, joint swelling , pedal edema, tenderness - Back Exam Back exam: NORMAL INSPECTION - Neurological Exam Neurological exam: Alert, CN II-XII Intact, Oriented x3 - Psychiatric Exam Psychiatric exam: Normal Affect, Normal Mood - Skin Skin Exam: Dry, Intact, Normal Color, Warm Results - Vital Signs Recent Vital Signs: Last Vital Signs Temp 98.2 F 05/06/17 12:03 Pulse 79 05/06/17 19:04 Resp 18 05/06/17 19:04 BP 125/75 05/06/17 19:04 Pulse Ox 99 05/06/17 19:04 - Labs Result Diagrams: 05/06/17 12:17 05/06/17 12:17 Assessment & Plan - Assessment and Plan (Free Text) Assessment: 41 year old female with a past medical history significant for DM2, hypothyroidism and cholelithiasis s/p cholecystectomy (2003) who presents with 36 hours of epigastric pain, nausea and greater than 10 episodes of coffee ground emesis. Plan: 1. Abdominal Pain with Nausea and associate Hematemesis -CT Chest/Abdomen/Pelvis showed no acute gastrointestinal abnormalities -Currently with stable hemoglobin and hematocrit -Afebrile and without tachycardia, tachypnea or leukocytosis -Protonix 40mg IV Q12 -Zofran 4mg IVP Q4 PRN for N/V -Normal Saline at 100mls/hr -Morphine 2mg Q4H PRN for pain control -NPO diet -Vitamin A/D ointment and oral care PRN -Continue to monitor for anemia with daily CBC's -GI Consulted, all recommendations appreciated 2. History of DM2 -SSI-Low and Accuchecks ACHS -Hemoglobin A1c pending 3. History of Hypothyroidism -TSH pending -Patient can't recall home dose of Synthroid but will obtain and relay to day team GI Prophylaxis: Protonix DVT Prophylaxis: SCD's Patient seen and case discussed with attending, Dr. Bassett. - Date & Time Date: 05/06/17 Time: 20:39 <Scottie Bassett - Last Filed: 05/07/17 05:46> Results - Vital Signs Recent Vital Signs: Last Vital Signs Temp 98.1 F 05/06/17 20:57 Pulse 68 05/06/17 20:57 Resp 20 05/06/17 20:57 BP 119/78 05/06/17 20:57 Pulse Ox 99 05/06/17 19:04 - Labs Result Diagrams: 05/06/17 12:17 05/06/17 12:17 Labs: Laboratory Results - last 24 hr 05/06/17 22:34 POC Glucose (mg/dL) 84 Attending/Attestation - Attestation I have personally seen and examined this patient.: Yes I have fully participated in the care of the patient.: Yes I have reviewed all pertinent clinical information: Yes Notes (Text): 05/07/17 05:38 Patient was seen when she was in room # 179-46. Agree with history, physical examination, assessment and plan. My impressions would be as follows: Nausea/Vomiting. Hematemesis. Epigastric discomfort. Umbilical pain. Gastritis. Hypokalemia. DM II. Sinus tachycardia. Hypothyroidism. Arthritis. Left Tibial fracture history. Obesity. Elevated lipase level. History of anxiety. Left and right adrenal mass. Left adnexal cyst. History of left knee meniscal tear. History of cholelithiasis. History of bilateral carpal tunnel syndrome. History of cholecystectomy. History of smoking-Cigars. Hisoty of of marijuana use. History of alcohol use ocassionally. History of allergy to tomatoes. History of ovarian cyst. History of eyeglasses. History of dry nose, Urine positive for opiates,cocaine, cannabinoids. Family history of DM. Family history of HTN. Family history of lung cancer-mother. Family history of breast cancer-MGM. Family history of multiple myeloma-PGM. Family history of Crohn's disease-MGM.
[2017-05-06] MEDS: Insulin Reg-LOW-Coverage SC SCH (22:35)
[2017-05-06] MEDS ORDERED: Pneumococcal 23-Valent Vaccine IM ONE (23:39)
[2017-05-06] MEDS ORDERED: Influenza Vaccine 60 mcg/0.5 mL SYR (4YR UP) IM ONE (23:39)
[2017-05-07] MEDS: Sodium Chloride 0.9% 1,000 ML IV SCH ×2 (05:29→15:51)
[2017-05-07 06:26] LABS: BASO # 0.01 K/mm3 (0.0-2.0); BASO % 0.2 % (0.0-3.0); EOS # 0.2 (0.0-0.7); EOS % 3.1 % (1.5-5.0); GRAN # 2.93 (1.4-6.5); LYMPH # 1.9 (1.2-3.4); LYMPH % 33.8 % (22.0-35.0); MEAN CELL VOLUME 90.7 fl (80.0-105.0); MEAN CORPUSCULAR HEMOGLOBIN 28.9 pg (25.0-35.0); MEAN CORPUSCULAR HGB CONC 31.9 g/dl (31.0-37.0); MEAN PLATELET VOLUME 9.8 fl (7.0-11.0); MONO # 0.6 (0.1-0.6); MONO % 9.9 % (1.0-6.0); RBC 4.08 10^6/uL (3.5-6.1); RED CELL DISTRIBUTION WIDTH 14.4 % (11.5-14.5); WHITE BLOOD COUNT 5.5 10^3/ul (4.5-11.0)
[2017-05-07 06:35] LABS: HEMOGLOBIN 11.8 g/dL (12.0-16.0)
[2017-05-07 07:41] LABS: ALB/GLOB RATIO 1.1 (1.1-1.8); ALBUMIN 3.4 g/dL (3.0-4.8); ALT/SGPT 24 U/L (7-56); AST/SGOT 21 U/L (14-36); BLOOD UREA NITROGEN 5 mg/dL (7-21); GFR AFRICAN-AMERICAN > 60; GFR NON-AFRICAN AMERICAN > 60
[2017-05-07] MEDS: Insulin Reg-LOW-Coverage SC SCH ×4 (08:08→22:00)
[2017-05-07] MEDS ORDERED: Dextrose 50% SYRINGE Inj (50 ml) IVP STA (11:34)
--- NOTE | 2017-05-07 11:51 | CP.PCM.PN ---
<Lamont Aviles - Last Filed: 05/07/17 13:11> Subjective - Date & Time of Evaluation Date of Evaluation: 05/07/17 Time of Evaluation: 11:37 - Subjective Subjective: Medicine Progress Note: Patient seen and assessed at bedside. Patient notes that her nausea has resolved to a significant degree and that she has had no episodes of vomiting since admission. She is currently without any new complaints including fever, chills, headache, changes in her vision, dysphagia, chest pain, palpitations, SOB, cough, wheezing, abdominal pain, vomiting, diarrhea, constipation, melena, urinary symptoms, skin changes or any numbness/tingling/weakness of any extremity. Objective - Vital Signs/Intake and Output Vital Signs (last 24 hours): Temp Pulse Resp BP Pulse Ox 98.2 F 80 20 127/76 98 05/07/17 08:22 05/07/17 08:22 05/07/17 08:22 05/07/17 08:22 05/07/17 08:22 Intake and Output: 05/07/17 05/07/17 06:59 18:59 Intake Total 1050 Balance 1050 - Medications Medications: Current Medications Sodium Chloride (Sodium Chloride 0.9%) 1,000 mls @ 100 mls/hr IV .Q10H [facility] Last Admin: 05/07/17 05:29 Dose: 100 mls/hr Insulin Human Regular (Humulin R Low) 0 units SC ACHS [facility] PRN Reason: Protocol Last Admin: 05/07/17 08:08 Dose: Not Given Morphine Sulfate (Morphine) 2 mg IVP Q4H PRN PRN Reason: Pain, Mild (1-3) Last Admin: 05/07/17 05:35 Dose: 2 mg Ondansetron HCl (Zofran Inj) 4 mg IVP Q4H PRN PRN Reason: Nausea/Vomiting Pantoprazole Sodium (Protonix Inj) 40 mg IVP Q12 [facility] Last Admin: 05/07/17 09:19 Dose: 40 mg Vitamin A (Vitamin A & D Oint Ud Foilpak) 1 ea TOP Q2 PRN PRN Reason: Dry mouth Last Admin: 05/07/17 09:19 Dose: 1 ea - Labs Labs: 05/07/17 05:15 05/07/17 05:15 PT 12.0 SECONDS (9.4-12.5) 05/06/17 12:17 INR 1.04 (0.93-1.08) 05/06/17 12:17 APTT 26.5 Seconds (25.1-36.5) 05/06/17 12:17 - Constitutional Appears: Non-toxic, No Acute Distress - Head Exam Head Exam: ATRAUMATIC, NORMOCEPHALIC - Eye Exam Eye Exam: EOMI, PERRL Pupil Exam: NORMAL ACCOMODATION - ENT Exam ENT Exam: Mucous Membranes Moist, Normal Exam - Neck Exam Neck Exam: Full ROM, Normal Inspection. absent: Lymphadenopathy - Respiratory Exam Respiratory Exam: Clear to Ausculation Bilateral, NORMAL BREATHING PATTERN. absent: Accessory Muscle Use, Decreased Breath Sounds, Rales, Rhonchi, Wheezes, Respiratory Distress - Cardiovascular Exam Cardiovascular Exam: REGULAR RHYTHM, RRR, +S1, +S2. absent: Bradycardia, Tachycardia, Irregular Rhythm - GI/Abdominal Exam GI & Abdominal Exam: Soft, Normal Bowel Sounds. absent: Distended, Firm, Guarding, Rigid, Tenderness, Rebound - Extremities Exam Extremities Exam: Full ROM, Normal Capillary Refill. absent: Calf Tenderness, Joint Swelling, Pedal Edema, Tenderness - Neurological Exam Neurological Exam: Alert, Awake, CN II-XII Intact, Oriented x3 - Psychiatric Exam Psychiatric exam: Normal Affect, Normal Mood - Skin Skin Exam: Dry, Intact, Normal Color, Warm Assessment and Plan - Assessment and Plan (Free Text) Assessment: 41 year old female with a past medical history significant for DM2, hypothyroidism and cholelithiasis s/p cholecystectomy (2003) who presents with 36 hours of epigastric pain, nausea and greater than 10 episodes of coffee ground emesis. Patient has been without vomiting since admission and with significantly improved abdominal pain. Patient to have an MRI of the abdomen with and without contrast for an adrenal incidentaloma. Plan: 1. Abdominal Pain with Nausea and associate Hematemesis -CT Chest/Abdomen/Pelvis showed no acute gastrointestinal abnormalities -Currently with stable hemoglobin and hematocrit -Afebrile and without tachycardia, tachypnea or leukocytosis -Tentatively scheduled for Endoscopy on 05/08/17 -Continue Protonix 40mg IV Q12 -Continue Zofran 4mg IVP Q4 PRN for N/V -Continue Normal Saline at 100mls/hr -Continue Morphine 2mg Q4H PRN for pain control -NPO diet; Will advance based on GI recommendations -Continue Vitamin A/D ointment and oral care PRN -Continue to monitor for anemia with daily CBC's -GI Consulted, all recommendations appreciated 2. History of DM2 -SSI-Low and Accuchecks ACHS -Hemoglobin A1c pending 3. History of Hypothyroidism -TSH within normal limits 4. Left Adrenal Incidentaloma -CT Chest/Abdomen/Pelvis showed a left adrenal heterogeneous nodule/small mass measuring 2.1cm, with this noted to be 2.0cm on 12/07/16, Further assessment by MRI was suggested. -MRI Abdomen with/without contrast pending -Plasma free metanephrines pending GI Prophylaxis: Protonix DVT Prophylaxis: SCD's Patient seen and case discussed with attending, Dr. Luque. <Corey Luque - Last Filed: 05/07/17 14:21> Objective - Vital Signs/Intake and Output Vital Signs (last 24 hours): Temp Pulse Resp BP Pulse Ox 98.2 F 80 20 127/76 98 05/07/17 08:22 05/07/17 08:22 05/07/17 08:22 05/07/17 08:22 05/07/17 08:22 Intake and Output: 05/07/17 05/07/17 06:59 18:59 Intake Total 1050 Balance 1050 - Medications Medications: Current Medications Sodium Chloride (Sodium Chloride 0.9%) 1,000 mls @ 100 mls/hr IV .Q10H [facility] Last Admin: 05/07/17 05:29 Dose: 100 mls/hr Insulin Human Regular (Humulin R Low) 0 units SC [facility] PRN Reason: Protocol Last Admin: 05/07/17 08:08 Dose: Not Given Morphine Sulfate (Morphine) 2 mg IVP Q4H PRN PRN Reason: Pain, Mild (1-3) Last Admin: 05/07/17 05:35 Dose: 2 mg Ondansetron HCl (Zofran Inj) 4 mg IVP Q4H PRN PRN Reason: Nausea/Vomiting Pantoprazole Sodium (Protonix Inj) 40 mg IVP Q12 [facility] Last Admin: 05/07/17 09:19 Dose: 40 mg Vitamin A (Vitamin A & D Oint Ud Foilpak) 1 ea TOP Q2 PRN PRN Reason: Dry mouth Last Admin: 05/07/17 09:19 Dose: 1 ea - Labs Labs: 05/07/17 05:15 05/07/17 05:15 PT 12.0 SECONDS (9.4-12.5) 05/06/17 12:17 INR 1.04 (0.93-1.08) 05/06/17 12:17 APTT 26.5 Seconds (25.1-36.5) 05/06/17 12:17 Attending/Attestation - Attestation I have personally seen and examined this patient.: Yes I have fully participated in the care of the patient.: Yes I have reviewed all pertinent clinical information, including history, physical exam and plan: Yes Notes (Text): 05/07/17 14:14 41 year old female with past medical history of diabetes and hypothyroidism who presented last night with complaint of epigastric pain, nausea and vomiting with coffee ground emesis. She is NPO pending GI evaluation for possible EGD today or tomorrow. Continue with iv protonix and zofran prn. CT abd/pelvis also showed adrenal incidentaloma for which MRI abd/pelvis is ordered. UTox was positive for cocaine, opiates and cannabinoids. Patient was counselled on risks of continued substance abuse. Corey Luque MD Hospitalist.
--- NOTE | 2017-05-07 14:27 | CP.PCM.CON ---
<AbhinavSha - Last Filed: 05/07/17 14:41> History of Present Illness - History of Present Illness History of Present Illness: Consult Note for Dr. Foley - GI 41 AA F with a PMHx of NIDDM, hypothyroidism and cholelithiasis s/p cholecystectomy presented to [facility] ED with complaints of epigastric pain and discomfort. Pt stated her symptoms began early in the morning (3AM) while at work after drinking coffee. Pt prior to this was at a family democrat and denied any unusual foods or drinks. Pt stated that after drinking coffee, she began experiencing abdominal discomfort and subsequently tried to move her bowels, however was unable to and wound up vomiting instead. She experienced multiple bouts of emesis, begining with previously eaten food then to bilious emesis then to coffee ground emesis, and finally while in the ED experienced blood streaked emesis. Pt also noted LLQ abdominal pain, however she has experienced this for "years" as she has a history of ovarian cysts and was due to see her spotlight operator later this month. Pt prior to reporting to the ED, smoked marijuana as she explained it previously helped her with similar episodes in the past. She denies any alleviated or aggravating factors and can only associate her symptoms with the coffee she drank. She denies sick contacts, recurrent NSAID use, alcohol consumption, fevers, chills, headache, dysphagia, chest pain, SOB, cough, wheezing, diarrhea, hematochezia, changes in her urine or voiding, skin changes or any numbness/tingling/weakness of any extremity. 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 Villareal Review of Systems - Review of Systems Review of Systems: As per HPI otherwise negative Past Patient History - Infectious Disease Hx of Infectious Diseases: None - Past Social History Smoking Status: Light Smoker < 10 Cigarettes Daily - CARDIAC Hx Cardiac Disorders: No Hx Hypertension: No - PULMONARY Hx Respiratory Disorders: No - NEUROLOGICAL Hx Neurological Disorder: No - HEENT Hx HEENT Problems: No - RENAL Hx Chronic Kidney Disease: No - ENDOCRINE/METABOLIC Hx Endocrine Disorders: Yes Hx Diabetes Mellitus Type 2: Yes Hx Hypothyroidism: Yes - HEMATOLOGICAL/ONCOLOGICAL Hx Blood Disorders: Yes Hx Anemia: Yes - INTEGUMENTARY Hx Dermatological Problems: No - MUSCULOSKELETAL/RHEUMATOLOGICAL Hx Musculoskeletal Disorders: Yes Hx Arthritis: Yes Hx Falls: Yes Hx Fractures: Yes (left tibia as a child) Hx Unsteady Gait: Yes - GASTROINTESTINAL Hx Gastrointestinal Disorders: No - GENITOURINARY/GYNECOLOGICAL Hx Genitourinary Disorders: No - PSYCHIATRIC Hx Psychophysiologic Disorder: No Hx Anxiety: Yes Hx Depression: Yes Hx Substance Use: Yes (MARIJUANA , DENIES COCAINE, TE DUST IN THE PAST) - SURGICAL HISTORY Hx Surgeries: Yes Hx Cholecystectomy: Yes Other/Comment: lt tibia sx with pins - ANESTHESIA Hx Anesthesia: Yes Hx Anesthesia Reactions: No Hx Malignant Hyperthermia: No Meds Allergies/Adverse Reactions: Allergies Allergy/AdvReac Type Severity Reaction Status Date / Time tomato Allergy RASH Verified 12/07/16 13:32 - Medications Medications: Current Medications Sodium Chloride (Sodium Chloride 0.9%) 1,000 mls @ 100 mls/hr IV .Q10H [facility] Last Admin: 05/07/17 05:29 Dose: 100 mls/hr Insulin Human Regular (Humulin R Low) 0 units SC ACHS [facility] PRN Reason: Protocol Last Admin: 05/07/17 08:08 Dose: Not Given Morphine Sulfate (Morphine) 2 mg IVP Q4H PRN PRN Reason: Pain, Mild (1-3) Last Admin: 05/07/17 05:35 Dose: 2 mg Ondansetron HCl (Zofran Inj) 4 mg IVP Q4H PRN PRN Reason: Nausea/Vomiting Pantoprazole Sodium (Protonix Inj) 40 mg IVP Q12 [facility] Last Admin: 05/07/17 09:19 Dose: 40 mg Vitamin A (Vitamin A & D Oint Ud Foilpak) 1 ea TOP Q2 PRN PRN Reason: Dry mouth Last Admin: 05/07/17 09:19 Dose: 1 ea Physical Exam - Constitutional Appears: No Acute Distress - Head Exam Head Exam: ATRAUMATIC, NORMAL INSPECTION, NORMOCEPHALIC - Eye Exam Eye Exam: EOMI, Normal appearance, PERRL Pupil Exam: NORMAL ACCOMODATION, PERRL - ENT Exam ENT Exam: Mucous Membranes Moist, Normal Exam - Respiratory Exam Respiratory Exam: Clear to Auscultation Bilateral, NORMAL BREATHING PATTERN - Cardiovascular Exam Cardiovascular Exam: REGULAR RHYTHM, +S1, +S2 - GI/Abdominal Exam GI & Abdominal Exam: Hypoactive Bowel Sounds, Soft Additional comments: LLQ tenderness - Extremities Exam Extremities exam: Positive for: normal inspection - Neurological Exam Neurological exam: Alert, CN II-XII Intact, Normal Gait, Oriented x3, Reflexes Normal - Skin Skin Exam: Dry, Intact, Normal Color, Warm Results - Vital Signs Recent Vital Signs: Last Vital Signs Temp 98.2 F 05/07/17 08:22 Pulse 80 05/07/17 08:22 Resp 20 05/07/17 08:22 BP 127/76 05/07/17 08:22 Pulse Ox 98 05/07/17 08:22 - Labs Result Diagrams: 05/07/17 05:15 05/07/17 05:15 Labs: Laboratory Results - last 24 hr 05/06/17 05/07/17 05/07/17 22:34 05:15 05:15 WBC RBC Hgb Hct MCV MCH MCHC RDW Plt Count MPV Gran % Lymph % (Auto) [place] % (Auto) Eos % (Auto) Baso % (Auto) Gran # Lymph # (Auto) [place] # (Auto) Eos # (Auto) Baso # (Auto) Sodium Potassium Chloride Carbon Dioxide Anion Gap BUN Creatinine Est GFR ( Amer) Est GFR (Non-Af Amer) POC Glucose (mg/dL) 84 Random Glucose Hemoglobin A1c 5.9 Calcium Total Bilirubin AST ALT Alkaline Phosphatase Total Protein Albumin Globulin Albumin/Globulin Ratio TSH 3rd Generation Blood Type Confirm B POSITIVE 05/07/17 05/07/17 05/07/17 05:15 05:15 05:15 WBC 5.5 D RBC 4.08 Hgb 11.8 L D Hct 37.0 MCV 90.7 MCH 28.9 MCHC 31.9 RDW 14.4 Plt Count 275 MPV 9.8 Gran % 53.0 Lymph % (Auto) 33.8 [place] % (Auto) 9.9 H Eos % (Auto) 3.1 Baso % (Auto) 0.2 Gran # 2.93 Lymph # (Auto) 1.9 [place] # (Auto) 0.6 Eos # (Auto) 0.2 Baso # (Auto) 0.01 Sodium 142 Potassium 3.6 Chloride 110 H Carbon Dioxide 23 Anion Gap 13 BUN 5 L Creatinine 0.8 Est GFR ( Amer) > 60 Est GFR (Non-Af Amer) > 60 POC Glucose (mg/dL) Random Glucose 97 Hemoglobin A1c Calcium 9.0 Total Bilirubin 1.0 AST 21 ALT 24 Alkaline Phosphatase 57 Total Protein 6.5 Albumin 3.4 Globulin 3.0 Albumin/Globulin Ratio 1.1 TSH 3rd Generation 2.95 Blood Type Confirm 05/07/17 07:29 WBC RBC Hgb Hct MCV MCH MCHC RDW Plt Count MPV Gran % Lymph % (Auto) [place] % (Auto) Eos % (Auto) Baso % (Auto) Gran # Lymph # (Auto) [place] # (Auto) Eos # (Auto) Baso # (Auto) Sodium Potassium Chloride Carbon Dioxide Anion Gap BUN Creatinine Est GFR ( Amer) Est GFR (Non-Af Amer) POC Glucose (mg/dL) 97 Random Glucose Hemoglobin A1c Calcium Total Bilirubin AST ALT Alkaline Phosphatase Total Protein Albumin Globulin Albumin/Globulin Ratio TSH 3rd Generation Blood Type Confirm Assessment & Plan - Assessment and Plan (Free Text) Assessment: 41 AA F with a PMHx of NIDDM, hypothyroidism and cholelithiasis s/p cholecystectomy presented to [facility] ED with complaints of epigastric pain and discomfort, noted to have coffee ground/blood streaked emesis possibly from wretching. CT Chest/Abdomen/Pelvis showed no acute gastrointestinal abnormalities, however demonstrated incidental adrenal mass, will fu with MRI of abdomen. Pt to be NPO and EGD. H&H stable, continue to monitor. Continue PPI , zofran, IVF:NS@100 and morphine for pain control. <Lenny Foley V - Last Filed: 05/08/17 00:29> Meds - Medications Medications: Current Medications Benzocaine/Menthol (Cepacol Sore Throat) 1 pranav MT Q2H PRN PRN Reason: Sore Throat Last Admin: 05/07/17 15:50 Dose: 1 pranav Sodium Chloride (Sodium Chloride 0.9%) 1,000 mls @ 100 mls/hr IV .Q10H [facility] Last Admin: 05/07/17 15:51 Dose: 100 mls/hr Insulin Human Regular (Humulin R Low) 0 units SC ACHS [facility] PRN Reason: Protocol Last Admin: 05/07/17 16:35 Dose: Not Given Morphine Sulfate (Morphine) 2 mg IVP Q4H PRN PRN Reason: Pain, Mild (1-3) Last Admin: 05/07/17 05:35 Dose: 2 mg Ondansetron HCl (Zofran Inj) 4 mg IVP Q4H PRN PRN Reason: Nausea/Vomiting Last Admin: 05/07/17 17:59 Dose: 4 mg Pantoprazole Sodium (Protonix Inj) 40 mg IVP Q12 [facility] Last Admin: 05/07/17 21:30 Dose: 40 mg Vitamin A (Vitamin A & D Oint Ud Foilpak) 1 ea TOP Q2 PRN PRN Reason: Dry mouth Last Admin: 05/07/17 09:19 Dose: 1 ea Results - Vital Signs Recent Vital Signs: Last Vital Signs Temp 97.9 F 05/07/17 17:09 Pulse 68 05/07/17 17:09 Resp 20 05/07/17 17:09 BP 137/94 H 05/07/17 17:09 Pulse Ox 98 05/07/17 17:09 - Labs Result Diagrams: 05/07/17 05:15 05/07/17 05:15 Labs: Laboratory Results - last 24 hr 05/07/17 05/07/17 05/07/17 05:15 05:15 05:15 WBC RBC Hgb Hct MCV MCH MCHC RDW Plt Count MPV Gran % Lymph % (Auto) [place] % (Auto) Eos % (Auto) Baso % (Auto) Gran # Lymph # (Auto) [place] # (Auto) Eos # (Auto) Baso # (Auto) Sodium Potassium Chloride Carbon Dioxide Anion Gap BUN Creatinine Est GFR ( Amer) Est GFR (Non-Af Amer) POC Glucose (mg/dL) Random Glucose Hemoglobin A1c 5.9 Calcium Total Bilirubin AST ALT Alkaline Phosphatase Total Protein Albumin Globulin Albumin/Globulin Ratio TSH 3rd Generation 2.95 Blood Type Confirm B POSITIVE 05/07/17 05/07/17 05/07/17 05:15 05:15 07:29 WBC 5.5 D RBC 4.08 Hgb 11.8 L D Hct 37.0 MCV 90.7 MCH 28.9 MCHC 31.9 RDW 14.4 Plt Count 275 MPV 9.8 Gran % 53.0 Lymph % (Auto) 33.8 [place] % (Auto) 9.9 H Eos % (Auto) 3.1 Baso % (Auto) 0.2 Gran # 2.93 Lymph # (Auto) 1.9 [place] # (Auto) 0.6 Eos # (Auto) 0.2 Baso # (Auto) 0.01 Sodium 142 Potassium 3.6 Chloride 110 H Carbon Dioxide 23 Anion Gap 13 BUN 5 L Creatinine 0.8 Est GFR ( Amer) > 60 Est GFR (Non-Af Amer) > 60 POC Glucose (mg/dL) 97 Random Glucose 97 Hemoglobin A1c Calcium 9.0 Total Bilirubin 1.0 AST 21 ALT 24 Alkaline Phosphatase 57 Total Protein 6.5 Albumin 3.4 Globulin 3.0 Albumin/Globulin Ratio 1.1 TSH 3rd Generation Blood Type Confirm 05/07/17 05/07/17 05/07/17 11:31 16:15 21:30 WBC RBC Hgb Hct MCV MCH MCHC RDW Plt Count MPV Gran % Lymph % (Auto) [place] % (Auto) Eos % (Auto) Baso % (Auto) Gran # Lymph # (Auto) [place] # (Auto) Eos # (Auto) Baso # (Auto) Sodium Potassium Chloride Carbon Dioxide Anion Gap BUN Creatinine Est GFR ( Amer) Est GFR (Non-Af Amer) POC Glucose (mg/dL) 68 104 104 Random Glucose Hemoglobin A1c Calcium Total Bilirubin AST ALT Alkaline Phosphatase Total Protein Albumin Globulin Albumin/Globulin Ratio TSH 3rd Generation Blood Type Confirm Attending/Attestation - Attestation I have personally seen and examined this patient.: Yes I have fully participated in the care of the patient.: Yes I have reviewed all pertinent clinical information: Yes Notes (Text): This is an addendum to GI consult report dictated by the Electrical Appliance Repairer.The patient was seen and examined earlier. Medical records, lab studies, imagings were reviewed. Last 24 hours events reviewed. Agreed with the above treatment plan as outlined in Electrical Appliance Repairer 's notes the with the addition of the following On examination abdomen soft mild tenderness present in the epigastric area The differential diagnosis for upper GI bleeding should include a Tami-Vega tear, erosive esophagitis and peptic ulcer disease. 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
[2017-05-07] MEDS ORDERED: Benzocaine/Menthol (Cepacol) Lozenge MT PRN (15:39)
[2017-05-07] MEDS ORDERED: Gadodiamide 287 MG/ML VIAL (20ML) IV ONE (16:24)
--- NOTE | 2017-05-07 19:54 | MRI ---
EXAM: MR Abdomen Without and With Intravenous Contrast EXAM DATE/TIME: 05/07/2017 8:52 AM CLINICAL HISTORY: 41 years old, female; Signs and symptoms; Other: Abdominal pain; Prior surgery; Surgery date: 6+ months; Surgery type: Gall bladder removal; Patient HX: ? Adrenal mass TECHNIQUE: Multiplanar magnetic resonance images of the abdomen without and with intravenous contrast. CONTRAST: 20 mL of OMNISCAN administered intravenously. COMPARISON: No relevant prior studies available. FINDINGS: LIMITATIONS: Mild streak/motion artifact. LIVER: No focal lesions visualized. GALLBLADDER AND BILE DUCTS: Gallbladder is surgically absent. No evidence of significant biliary ductal dilatation. PANCREAS: No evidence of acute pancreatitis. SPLEEN: No focal lesions visualized. No evidence of significant splenomegaly. ADRENALS: Bilateral adrenal nodules, as seen on the recent CT abdomen. The larger nodule, on the left, measures 2.1 cm, and the smaller, on the right, measures 1.5 cm. Both of these nodules demonstrate signal loss on the out of phase T1 weighted images, compatible with adrenal adenomas. KIDNEYS AND URETERS: No focal lesions visualized. No evidence of significant hydronephrosis. STOMACH AND BOWEL: No evidence of bowel obstruction. INTRAPERITONEAL SPACE: No free fluid. VASCULATURE: No evidence of abdominal aortic aneurysm. LYMPH NODES: No evidence of diffuse pathologic lymphadenopathy. IMPRESSION: - The bilateral adrenal lesions seen on the recent abdominal CT have MR characteristics most compatible with benign adenomas. - See above for remaining findings.
[2017-05-07] MEDS ORDERED: DiphenhydrAMINE 50 mg/ml Inj IVP STA (20:27)
[2017-05-07] MEDS: DiphenhydrAMINE 50 mg/ml Inj IVP STA ×2 (21:30→21:33)
[2017-05-08] MEDS: Sodium Chloride 0.9% 1,000 ML IV SCH (04:13)
[2017-05-08 06:37] LABS: BASO # 0.01 K/mm3 (0.0-2.0); BASO % 0.2 % (0.0-3.0); EOS # 0.2 (0.0-0.7); EOS % 3.6 % (1.5-5.0); GRAN # 2.54 (1.4-6.5); GRAN % 53.4 % (50.0-68.0); HEMOGLOBIN 11.4 g/dL (12.0-16.0); LYMPH # 1.7 (1.2-3.4); LYMPH % 35.4 % (22.0-35.0); MEAN CELL VOLUME 90.6 fl (80.0-105.0); MEAN CORPUSCULAR HEMOGLOBIN 28.9 pg (25.0-35.0); MEAN CORPUSCULAR HGB CONC 31.8 g/dl (31.0-37.0); MEAN PLATELET VOLUME 9.9 fl (7.0-11.0); MONO # 0.4 (0.1-0.6); MONO % 7.4 % (1.0-6.0); RBC 3.95 10^6/uL (3.5-6.1); WHITE BLOOD COUNT 4.8 10^3/ul (4.5-11.0)
[2017-05-08 07:26] LABS: ALB/GLOB RATIO 1.1 (1.1-1.8); ALBUMIN 3.2 g/dL (3.0-4.8); ALT/SGPT 25 U/L (7-56); AST/SGOT 16 U/L (14-36); BLOOD UREA NITROGEN 4 mg/dL (7-21); CALCIUM 8.9 mg/dL (8.4-10.5); GFR AFRICAN-AMERICAN > 60; GFR NON-AFRICAN AMERICAN > 60
[2017-05-08] MEDS: Insulin Reg-LOW-Coverage SC SCH ×4 (07:36→21:34)
--- NOTE | 2017-05-08 11:29 | CP.PCM.PN ---
<StefanLamont - Last Filed: 05/08/17 11:16> Subjective - Date & Time of Evaluation Date of Evaluation: 05/08/17 Time of Evaluation: 11:16 - Subjective Subjective: Medicine Progress Note: Patient seen and assessed at bedside. Patient was noted to be upset overnight and requesting to leave so that she could go back to work as patient feared that she would be fired for her absence. Patient was given anti-anxiety medication and decided to stay. Patient continued to be upset this AM and reports that she is upset that no one has come to visit her and that she is currently on her menstrual cycle. Otherwise patient reports that she tried clear liquids overnight and immediately become nauseous and vomited once without blood noted. She denies suicidal/homicidal ideations but states that she would be "better off ". She also denies fevers, chills, headache, chest pain, palpitations, SOB, cough, abdominal pain, diarrhea, constipation, urinary symptoms, skin changes or any numbness/tingling/weakness. Objective - Vital Signs/Intake and Output Vital Signs (last 24 hours): Temp Pulse Resp BP Pulse Ox 98.3 F 67 18 106/70 100 05/08/17 06:00 05/08/17 06:00 05/08/17 06:00 05/08/17 06:00 05/08/17 06:00 Intake and Output: 05/08/17 05/08/17 06:59 18:59 Intake Total 1400 Balance 1400 - Medications Medications: Current Medications Benzocaine/Menthol (Cepacol Sore Throat) 1 pranav MT Q2H PRN PRN Reason: Sore Throat Last Admin: 05/07/17 15:50 Dose: 1 pranav Sodium Chloride (Sodium Chloride 0.9%) 1,000 mls @ 100 mls/hr IV .Q10H RIKKI Last Admin: 05/08/17 04:13 Dose: 100 mls/hr Insulin Human Regular (Humulin R Low) 0 units SC ACHS RIKKI PRN Reason: Protocol Last Admin: 05/08/17 07:36 Dose: Not Given Ondansetron HCl (Zofran Inj) 4 mg IVP Q4H PRN PRN Reason: Nausea/Vomiting Last Admin: 05/07/17 17:59 Dose: 4 mg Pantoprazole Sodium (Protonix Inj) 40 mg IVP Q12 RIKKI Last Admin: 05/08/17 09:25 Dose: 40 mg Vitamin A (Vitamin A & D Oint Ud Foilpak) 1 ea TOP Q2 PRN PRN Reason: Dry mouth Last Admin: 05/07/17 09:19 Dose: 1 ea - Labs Labs: 05/08/17 05:45 05/08/17 05:45 PT 12.0 SECONDS (9.4-12.5) 05/06/17 12:17 INR 1.04 (0.93-1.08) 05/06/17 12:17 APTT 26.5 Seconds (25.1-36.5) 05/06/17 12:17 - Constitutional Appears: Non-toxic, No Acute Distress - Head Exam Head Exam: ATRAUMATIC, NORMOCEPHALIC - Eye Exam Eye Exam: EOMI, PERRL Pupil Exam: NORMAL ACCOMODATION - ENT Exam ENT Exam: Mucous Membranes Moist - Neck Exam Neck Exam: Full ROM. absent: Lymphadenopathy - Respiratory Exam Respiratory Exam: Clear to Ausculation Bilateral, NORMAL BREATHING PATTERN. absent: Accessory Muscle Use, Rales, Rhonchi, Wheezes, Respiratory Distress - Cardiovascular Exam Cardiovascular Exam: REGULAR RHYTHM, RRR, +S1, +S2. absent: Tachycardia - GI/Abdominal Exam GI & Abdominal Exam: Soft, Normal Bowel Sounds. absent: Distended, Firm, Guarding, Tenderness, Rebound - Extremities Exam Extremities Exam: Full ROM, Normal Capillary Refill. absent: Calf Tenderness, Joint Swelling, Pedal Edema, Tenderness - Back Exam Back Exam: NORMAL INSPECTION - Neurological Exam Neurological Exam: Alert, Awake, CN II-XII Intact, Normal Gait, Oriented x3 - Psychiatric Exam Psychiatric exam: absent: Depressed, Homicidal Ideation, Suicidal Ideation - Skin Skin Exam: Dry, Intact, Normal Color, Warm Assessment and Plan - Assessment and Plan (Free Text) Assessment: 41 year old female with a past medical history significant for DM2, hypothyroidism and cholelithiasis s/p cholecystectomy (2003) who presents with 36 hours of epigastric pain, nausea and greater than 10 episodes of coffee ground emesis. Patient has been without vomiting since admission and with significantly improved abdominal pain. Patient to have an MRI of the abdomen with and without contrast for an adrenal incidentaloma. Patient to have EGD today with Dr. Foley. Plan: 1. Abdominal Pain with Nausea and associate Hematemesis -CT Chest/Abdomen/Pelvis showed no acute gastrointestinal abnormalities -Currently with stable hemoglobin and hematocrit -Afebrile and without tachycardia, tachypnea or leukocytosis -Tentatively scheduled for Endoscopy on today -Continue Protonix 40mg IV Q12 -Continue Zofran 4mg IVP Q4 PRN for N/V -Continue Normal Saline at 100mls/hr -Clear liquid diet; Will advance based on GI recommendations -Continue Vitamin A/D ointment and oral care PRN -Continue to monitor for anemia with daily CBC's -GI Consulted, all recommendations appreciated 2. History of DM2 -SSI-Low and Accuchecks ACHS -Hemoglobin A1c within normal limits at 5.9 3. History of Hypothyroidism -TSH within normal limits 4. Left Adrenal Incidentaloma -CT Chest/Abdomen/Pelvis showed a left adrenal heterogeneous nodule/small mass measuring 2.1cm, with this noted to be 2.0cm on 12/07/16, Further assessment by MRI was suggested. -MRI Abdomen with/without contrast described masses as benign adrenal adenoma -Plasma free metanephrines pending -Recommend outpatient monitoring 5. Pelvic/Adnexa Cystic Lesions -Chronic -Patient with already scheduled [facility] follow-up GI Prophylaxis: Protonix DVT Prophylaxis: SCD's Diet: Clear liquid Patient seen and case discussed with attending, Dr. Luque. <Corey Luque - Last Filed: 05/08/17 14:40> Objective - Vital Signs/Intake and Output Vital Signs (last 24 hours): Temp Pulse Resp BP Pulse Ox 99.2 F 65 18 120/78 99 05/08/17 13:20 05/08/17 13:20 05/08/17 13:20 05/08/17 13:20 05/08/17 14:23 Intake and Output: 05/08/17 05/08/17 06:59 18:59 Intake Total 1400 3 Balance 1400 3 - Medications Medications: Current Medications Benzocaine/Menthol (Cepacol Sore Throat) 1 pranav MT Q2H PRN PRN Reason: Sore Throat Last Admin: 05/07/17 15:50 Dose: 1 pranav Sodium Chloride (Sodium Chloride 0.9%) 1,000 mls @ 100 mls/hr IV .Q10H RIKKI Last Admin: 05/08/17 04:13 Dose: 100 mls/hr Insulin Human Regular (Humulin R Low) 0 units SC ACHS RIKKI PRN Reason: Protocol Last Admin: 05/08/17 12:23 Dose: Not Given Ondansetron HCl (Zofran Inj) 4 mg IVP Q4H PRN PRN Reason: Nausea/Vomiting Last Admin: 05/07/17 17:59 Dose: 4 mg Pantoprazole Sodium (Protonix Inj) 40 mg IVP Q12 RIKKI Last Admin: 05/08/17 09:25 Dose: 40 mg Vitamin A (Vitamin A & D Oint Ud Foilpak) 1 ea TOP Q2 PRN PRN Reason: Dry mouth Last Admin: 05/07/17 09:19 Dose: 1 ea - Labs Labs: 05/08/17 05:45 05/08/17 05:45 PT 12.0 SECONDS (9.4-12.5) 05/06/17 12:17 INR 1.04 (0.93-1.08) 05/06/17 12:17 APTT 26.5 Seconds (25.1-36.5) 05/06/17 12:17 Attending/Attestation - Attestation I have personally seen and examined this patient.: Yes I have fully participated in the care of the patient.: Yes I have reviewed all pertinent clinical information, including history, physical exam and plan: Yes Notes (Text): 05/08/17 14:38 41 year old female with past medical history of diabetes and hypothyroidism who presented with complaint of epigastric pain, nausea and vomiting with coffee ground emesis which has improved with iv protonix and zofran prn. She was seen by GI and plan is for EGD today. CT abd/pelvis also showed adrenal incidentaloma. MRI abd/pelvis showed benign adrenal ademona. Recommended outpatient follow up. She also had adnexal cyst for which she was advised to follow up with legal transcriptionist as outpatient. UTox was positive for cocaine, opiates and cannabinoids. Patient was counselled on risks of continued substance abuse. This morning patient is tearful and depressed. States it is due partly to her familiy not visiting while she is in the hospital. Emotional support was given. Psychiatry evaluation is requested. Corey Luque MD Hospitalist.
[2017-05-08] MEDS ORDERED: Propofol 10 mg/ml Inj (20 ML) ONE ×2 (14:20→14:26)
[2017-05-08] MEDS ORDERED: Sodium Chloride 0.9% 1,000 ML IV SCH (14:45)
[2017-05-08] MEDS ORDERED: Morphine 2 mg/ml ISec IVP PRN (19:57)
[2017-05-08] MEDS ORDERED: Morphine 2 mg/ml ISec IVP ONE (20:04)
[2017-05-09] MEDS: Sodium Chloride 0.9% 1,000 ML IV SCH (03:50)
[2017-05-09] MEDS: Insulin Reg-LOW-Coverage SC SCH ×4 (08:00→23:01)
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
--- NOTE | 2017-05-09 13:18 | CP.PCM.PN ---
<Sha La - Last Filed: 05/09/17 13:14> Subjective - Date & Time of Evaluation Date of Evaluation: 05/09/17 Time of Evaluation: 07:30 - Subjective Subjective: GI Progress Note Dr Foley Pt was seen and examined at bedside. As per pt, she could not tolerate the ice cream that she ate last night, however tolerated her breakfast this morning. Pt admitted to using NSAIDs often on account of her left knee pain, for which she was being treated by her PMD with injections and NSAIDS prior to losing insurance. Pt states that she feels better today and would like to see MANA[facility] for her cysts. Pt admitted to a small bowel movement and has been moving her bladder regularly. Pt denied fever, chills, sob, chest pains, nausea vomiting or urinary symptoms. Objective - Vital Signs/Intake and Output Vital Signs (last 24 hours): Temp Pulse Resp BP Pulse Ox 98.3 F 69 20 119/74 98 05/09/17 08:20 05/09/17 08:20 05/09/17 08:20 05/09/17 08:20 05/09/17 08:20 Intake and Output: 05/09/17 05/09/17 06:59 18:59 Intake Total 1020 Balance 1020 - Medications Medications: Current Medications Benzocaine/Menthol (Cepacol Sore Throat) 1 pranav MT Q2H PRN PRN Reason: Sore Throat Last Admin: 05/07/17 15:50 Dose: 1 pranav Sodium Chloride (Sodium Chloride 0.9%) 1,000 mls @ 100 mls/hr IV .Q10H RIKKI Last Admin: 05/09/17 03:50 Dose: 100 mls/hr Sodium Chloride (Sodium Chloride 0.9%) 1,000 mls @ 100 mls/hr IV .Q10H RIKKI Insulin Human Regular (Humulin R Low) 0 units SC ACHS RIKKI PRN Reason: Protocol Last Admin: 05/09/17 12:21 Dose: Not Given Ondansetron HCl (Zofran Inj) 4 mg IVP Q4H PRN PRN Reason: Nausea/Vomiting Last Admin: 05/09/17 08:01 Dose: 4 mg Pantoprazole Sodium (Protonix Inj) 40 mg IVP Q12 RIKKI Last Admin: 05/09/17 09:15 Dose: 40 mg Vitamin A (Vitamin A & D Oint Ud Foilpak) 1 ea TOP Q2 PRN PRN Reason: Dry mouth Last Admin: 05/07/17 09:19 Dose: 1 ea - Labs Labs: PT 12.0 SECONDS (9.4-12.5) 05/06/17 12:17 INR 1.04 (0.93-1.08) 05/06/17 12:17 APTT 26.5 Seconds (25.1-36.5) 05/06/17 12:17 - Constitutional Appears: No Acute Distress - Head Exam Head Exam: ATRAUMATIC, NORMAL INSPECTION, NORMOCEPHALIC - Eye Exam Eye Exam: EOMI, Normal appearance, PERRL Pupil Exam: NORMAL ACCOMODATION, PERRL - ENT Exam ENT Exam: Mucous Membranes Moist, Normal Exam - Respiratory Exam Respiratory Exam: Clear to Ausculation Bilateral, NORMAL BREATHING PATTERN - Cardiovascular Exam Cardiovascular Exam: REGULAR RHYTHM, +S1, +S2. absent: Murmur - GI/Abdominal Exam GI & Abdominal Exam: Soft, Tenderness (LLQ), Normal Bowel Sounds - Extremities Exam Extremities Exam: Full ROM, Normal Capillary Refill, Normal Inspection. absent : Joint Swelling, Pedal Edema - Neurological Exam Neurological Exam: Alert, Awake, CN II-XII Intact, Normal Gait, Oriented x3 - Psychiatric Exam Psychiatric exam: Normal Affect, Normal Mood - Skin Skin Exam: Dry, Intact, Normal Color, Warm Assessment and Plan - Assessment and Plan (Free Text) Assessment: 41 AA F with a PMHx of NIDDM, hypothyroidism and cholelithiasis s/p cholecystectomy presented to [facility] with complaints of epigastric pain and discomfort, noted to have coffee ground/blood streaked emesis possibly from wretching. CT Chest/Abdomen/Pelvis showed no acute gastrointestinal abnormalities, however demonstrated incidental adrenal mass, FU MRI of abdomen demonstrated benign adrenal ademona. Recommended outpatient follow up. She also has chronic adnexal cyst for which she will be fu with [facility] on saturday EGD completed demonstrated multiple linear gastric ulcers, Recommend avoid NSAID use, resume previous diet, advance to soft/puree. Continue ppi, carafate. Pt will need repeat EGD in 8 weeks <Lenny Foley V - Last Filed: 05/09/17 22:56> Objective - Vital Signs/Intake and Output Vital Signs (last 24 hours): Temp Pulse Resp BP Pulse Ox 97.9 F 71 19 136/84 98 05/09/17 16:00 05/09/17 16:00 05/09/17 16:00 05/09/17 16:00 05/09/17 16:00 Intake and Output: 05/09/17 05/10/17 18:59 06:59 Intake Total 600 Balance 600 - Medications Medications: Current Medications Benzocaine/Menthol (Cepacol Sore Throat) 1 pranav MT Q2H PRN PRN Reason: Sore Throat Last Admin: 05/07/17 15:50 Dose: 1 pranav Sodium Chloride (Sodium Chloride 0.9%) 1,000 mls @ 100 mls/hr IV .Q10H RIKKI Last Admin: 05/09/17 03:50 Dose: 100 mls/hr Sodium Chloride (Sodium Chloride 0.9%) 1,000 mls @ 100 mls/hr IV .Q10H RIKKI Insulin Human Regular (Humulin R Low) 0 units SC ACHS RIKKI PRN Reason: Protocol Last Admin: 05/09/17 17:02 Dose: Not Given Ondansetron HCl (Zofran Inj) 4 mg IVP Q4H PRN PRN Reason: Nausea/Vomiting Last Admin: 05/09/17 08:01 Dose: 4 mg Pantoprazole Sodium (Protonix Inj) 40 mg IVP Q12 RIKKI Last Admin: 05/09/17 09:15 Dose: 40 mg Vitamin A (Vitamin A & D Oint Ud Foilpak) 1 ea TOP Q2 PRN PRN Reason: Dry mouth Last Admin: 05/07/17 09:19 Dose: 1 ea - Labs Labs: PT 12.0 SECONDS (9.4-12.5) 05/06/17 12:17 INR 1.04 (0.93-1.08) 05/06/17 12:17 APTT 26.5 Seconds (25.1-36.5) 05/06/17 12:17 Attending/Attestation - Attestation I have personally seen and examined this patient.: Yes I have fully participated in the care of the patient.: Yes I have reviewed all pertinent clinical information, including history, physical exam and plan: Yes Notes (Text): This is an addendum to GI consult report dictated by the Grade Teacher.The patient was seen and examined earlier. Medical records, lab studies, imagings were reviewed. Last 24 hours events reviewed. Agreed with the above treatment plan as outlined in Grade Teacher 's notes the with the addition of the following 05/09/17 22:55
--- NOTE | 2017-05-09 16:09 | CP.PCM.PN ---
<Lamont Aviles - Last Filed: 05/09/17 15:59> Subjective - Date & Time of Evaluation Date of Evaluation: 05/09/17 Time of Evaluation: 15:59 - Subjective Subjective: Medicine Progress Note: Patient seen and assessed at bedside. No acute events overnight. Patient with no complaints this AM. Patient was originally planned to be discharged to [facility] at [facility] for depression/suicidal ideation. Patient subsequently requested to be discharged home and will now require evaluation from [facility] Screeners. She denies fevers, chills, headache, chest pain, palpitations, SOB, cough, abdominal pain, diarrhea, constipation, urinary symptoms, skin changes or any numbness/tingling/ weakness. Objective - Vital Signs/Intake and Output Vital Signs (last 24 hours): Temp Pulse Resp BP Pulse Ox 98.3 F 69 20 119/74 98 05/09/17 08:20 05/09/17 08:20 05/09/17 08:20 05/09/17 08:20 05/09/17 08:20 Intake and Output: 05/09/17 05/09/17 06:59 18:59 Intake Total 1020 600 Balance 1020 600 - Medications Medications: Current Medications Benzocaine/Menthol (Cepacol Sore Throat) 1 pranav MT Q2H PRN PRN Reason: Sore Throat Last Admin: 05/07/17 15:50 Dose: 1 pranav Sodium Chloride (Sodium Chloride 0.9%) 1,000 mls @ 100 mls/hr IV .Q10H RIKKI Last Admin: 05/09/17 03:50 Dose: 100 mls/hr Sodium Chloride (Sodium Chloride 0.9%) 1,000 mls @ 100 mls/hr IV .Q10H RIKKI Insulin Human Regular (Humulin R Low) 0 units SC ACHS RIKKI PRN Reason: Protocol Last Admin: 05/09/17 12:21 Dose: Not Given Ondansetron HCl (Zofran Inj) 4 mg IVP Q4H PRN PRN Reason: Nausea/Vomiting Last Admin: 05/09/17 08:01 Dose: 4 mg Pantoprazole Sodium (Protonix Inj) 40 mg IVP Q12 RIKKI Last Admin: 05/09/17 09:15 Dose: 40 mg Vitamin A (Vitamin A & D Oint Ud Foilpak) 1 ea TOP Q2 PRN PRN Reason: Dry mouth Last Admin: 05/07/17 09:19 Dose: 1 ea - Labs Labs: PT 12.0 SECONDS (9.4-12.5) 05/06/17 12:17 INR 1.04 (0.93-1.08) 05/06/17 12:17 APTT 26.5 Seconds (25.1-36.5) 05/06/17 12:17 - Constitutional Appears: Non-toxic, No Acute Distress - Head Exam Head Exam: ATRAUMATIC, NORMOCEPHALIC - Eye Exam Eye Exam: EOMI, PERRL Pupil Exam: NORMAL ACCOMODATION - ENT Exam ENT Exam: TM's Normal Bilaterally - Neck Exam Neck Exam: Full ROM. absent: Lymphadenopathy - Respiratory Exam Respiratory Exam: Clear to Ausculation Bilateral, NORMAL BREATHING PATTERN. absent: Accessory Muscle Use, Chest Wall Tenderness, Decreased Breath Sounds, Prolonged Expiratory Phase, Rales, Rhonchi, Wheezes, Respiratory Distress - Cardiovascular Exam Cardiovascular Exam: REGULAR RHYTHM, RRR, +S1, +S2. absent: Tachycardia - GI/Abdominal Exam GI & Abdominal Exam: Soft, Normal Bowel Sounds. absent: Distended, Firm, Guarding, Tenderness, Rebound - Extremities Exam Extremities Exam: Full ROM, Normal Capillary Refill. absent: Calf Tenderness, Joint Swelling, Pedal Edema, Tenderness - Neurological Exam Neurological Exam: Alert, Awake, Oriented x3 - Psychiatric Exam Psychiatric exam: Depressed - Skin Skin Exam: Dry, Intact, Normal Color, Warm Assessment and Plan - Assessment and Plan (Free Text) Assessment: 41 year old female with a past medical history significant for DM2, hypothyroidism and cholelithiasis s/p cholecystectomy (2003) who presents with 36 hours of epigastric pain, nausea and greater than 10 episodes of coffee ground emesis. Patient has been without vomiting since admission and with significantly improved abdominal pain. Patient to have an MRI of the abdomen with and without contrast for an adrenal incidentaloma. Patient underwent EGD with Dr. Foley that revealed multiple superficial gastric ulcers. Patient to be screened by [facility] Screeners for suicidial ideation. Plan: 1. Abdominal Pain with Nausea and associated Hematemesis -CT Chest/Abdomen/Pelvis showed no acute gastrointestinal abnormalities -Currently with stable hemoglobin and hematocrit -Afebrile and without tachycardia, tachypnea or leukocytosis -Endoscopy revealed multiple superficial gastric ulcers and chronic duodenitis -Continue Protonix 40mg IV Q12 -Continue Zofran 4mg IVP Q4 PRN for N/V -Continue Normal Saline at 100mls/hr -Soft/Pureed Heart Healthy Diet -Continue Vitamin A/D ointment and oral care PRN -Continue to monitor for anemia with daily CBC's -GI Consulted, all recommendations appreciated 2. Depression/Suicidal Ideation -Patient was originally amenable to discharge to [facility] at [facility] for depression and suicidal ideation -Patient subsequently requested to be discharged home -Patient will be kept for evaluation of suicidal ideation/depression from [facility] Screeners 3. History of DM2 -SSI-Low and Accuchecks ACHS -Hemoglobin A1c within normal limits at 5.9 4. History of Hypothyroidism -TSH within normal limits 5. Left Adrenal Incidentaloma -CT Chest/Abdomen/Pelvis showed a left adrenal heterogeneous nodule/small mass measuring 2.1cm, with this noted to be 2.0cm on 12/07/16, Further assessment by MRI was suggested. -MRI Abdomen with/without contrast described masses as benign adrenal adenoma -Plasma free metanephrines pending -Recommend outpatient monitoring 6. 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 Luque. <Corey Luque - Last Filed: 05/09/17 16:55> Objective - Vital Signs/Intake and Output Vital Signs (last 24 hours): Temp Pulse Resp BP Pulse Ox 97.9 F 71 19 136/84 98 05/09/17 16:00 05/09/17 16:00 05/09/17 16:00 05/09/17 16:00 05/09/17 16:00 Intake and Output: 05/09/17 05/09/17 06:59 18:59 Intake Total 1020 600 Balance 1020 600 - Medications Medications: Current Medications Benzocaine/Menthol (Cepacol Sore Throat) 1 pranav MT Q2H PRN PRN Reason: Sore Throat Last Admin: 05/07/17 15:50 Dose: 1 pranav Sodium Chloride (Sodium Chloride 0.9%) 1,000 mls @ 100 mls/hr IV .Q10H RIKKI Last Admin: 05/09/17 03:50 Dose: 100 mls/hr Sodium Chloride (Sodium Chloride 0.9%) 1,000 mls @ 100 mls/hr IV .Q10H RIKKI Insulin Human Regular (Humulin R Low) 0 units SC ACHS RIKKI PRN Reason: Protocol Last Admin: 05/09/17 12:21 Dose: Not Given Ondansetron HCl (Zofran Inj) 4 mg IVP Q4H PRN PRN Reason: Nausea/Vomiting Last Admin: 05/09/17 08:01 Dose: 4 mg Pantoprazole Sodium (Protonix Inj) 40 mg IVP Q12 RIKKI Last Admin: 05/09/17 09:15 Dose: 40 mg Vitamin A (Vitamin A & D Oint Ud Foilpak) 1 ea TOP Q2 PRN PRN Reason: Dry mouth Last Admin: 05/07/17 09:19 Dose: 1 ea - Labs Labs: PT 12.0 SECONDS (9.4-12.5) 05/06/17 12:17 INR 1.04 (0.93-1.08) 05/06/17 12:17 APTT 26.5 Seconds (25.1-36.5) 05/06/17 12:17 Attending/Attestation - Attestation I have personally seen and examined this patient.: Yes I have fully participated in the care of the patient.: Yes I have reviewed all pertinent clinical information, including history, physical exam and plan: Yes Notes (Text): 05/09/17 16:52 41 year old female with past medical history of diabetes and hypothyroidism who presented with complaint of epigastric pain, nausea and vomiting with coffee ground emesis which has improved with iv protonix and zofran prn. She was seen by GI and underwent EGD yesterday which showed multiple gastric ulcers and duodenal ulcer. Continue with PPI. Will need repeat EGD in few weeks per GI. CT abd/pelvis also showed adrenal incidentaloma. MRI abd/pelvis showed benign adrenal ademona. Recommended outpatient follow up. 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 UTox was positive for cocaine, opiates and cannabinoids. Patient was counselled on risks of continued substance abuse. During hospital stay she complained of depression. Psychiatry evaluation was appreciated who recommended inpatient psychiatric admission which patient initially agreed for but is now refusing. [facility] screener is requested. Corey Luque MD Hospitalist.
[2017-05-09] MEDS ORDERED: Pantoprazole 40 mg EC Tab PO STA (21:37)
--- NOTE | 2017-05-10 08:19 | PN ---
DATE: 05/09/2017 She is being seen today for a followup consultation. PRESENTATION: The patient is a 41-year-old female seen at bedside. She originally came to the hospital on 05/06/2017 due to having about 10 episodes of coffee-ground emesis with a lot of epigastric pain. The patient indicated that she had also attempted to relieve the nausea by smoking marijuana and felt very strange afterwards. Her urine toxicology did come positive not only for cannabis, but for opiates and cocaine, which the patient indicates that she does not use. Psychiatric consult was ordered due to concerns about the patient's depression. I saw the patient yesterday. She did have symptoms of depression at that time. She was not suicidal or homicidal. Indicated that all she wanted was some followup. So I visited her today, bringing her a list of agencies, which are local that she could be following up with, and the patient began to cry and indicated to me that she felt so hopeless that she needed help immediately, that she did not want to wait and when questioned as to whether or not she was suicidal, she indicated that she could not answer that as she was not sure if she would hurt herself. She indicated at that time she was willing to sign into the psychiatric unit once medically cleared. She was cleared by the medical team and when the social contact worker went down to sign her in, evidently she indicated that she has changed her mind that if she could not use her cellphone, she would not come. At that point when I received a call from the nurse, we agreed that the patient would be held overnight for [id number] due to her comment today. There is an attention-seeking quality to this patient. She is dramatic; however, she also has had some difficult situations in her life and part of her issue is that she has been in the hospital since Saturday and no one has come to visit her from her family and this is part of her presentation today. She feels very uncared for. She indicates she has a limited support system. She does have a dog that she loves. However, her interpersonal support system seems to be lacking at this moment in time and that is part of the patient's depression. VITAL SIGNS: Patient's vital signs include a temperature of 98.2, pulse rate of 77, blood pressure 128/77, respiratory rate of 19 and O2 sat of 100%. MENTAL STATUS EXAMINATION: The patient is alert and oriented x3. Her eye contact is good. Her behavior is cooperative. Her speech, rate and volume are within normal limits. Mood is sad. Affect is constricted. She is tearful. Her thoughts are goal directed, but very hopeless. She is not clear with me that she is not suicidal, indicates that she is worried she might hurt herself, that she needs help immediately rather than making an appointment outpatient. She denies being homicidal. She denies the presence of hallucinations, delusions or paranoia. Her concentration and her focus are adequate. 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 Her appetite is very poor and she has been having some difficulty sleeping and complaining of anxiety. DIAGNOSTIC IMPRESSION: Major depression, recurrent, without psychotic features. PLAN: The patient indicates that she may be suicidal. She initially was willing to sign into the unit for voluntary treatment, but changed her mind by the time the social contact worker came down to sign for consent. She is agreeable to according to the nursing staff who called me to wait until in the morning for me to do a [id number] with her, so that is the plan at the moment. I will follow her in the morning. Thank you for the consult. Milena Lee APN Yarely Hathaway MD MTDD
[2017-05-10 08:31] VITALS: BP 123/86; PULSE 62; RESP 20; TEMP 99.1; O2SAT 100
[2017-05-10] MEDS: Insulin Reg-LOW-Coverage SC SCH (09:12)
--- NOTE | 2017-05-10 10:40 | CP.PCM.DIS ---
<Shawn Hawkins - Last Filed: 05/10/17 10:26> Provider - Provider Date of Admission: 05/08/17 18:14 Attending physician: Corey Luque MD Primary care physician: Reyna Sanders MD Consults: GI: Alaina Psych: Polystanamado Time Spent in preparation of Discharge (in minutes): 35 Diagnosis - Discharge Diagnosis (1) PUD (peptic ulcer disease) Status: Acute Priority: High (2) Polysubstance abuse Status: Chronic Priority: High (3) Gastritis Status: Acute Priority: Medium (4) Hematemesis Status: Resolved Priority: High Hospital Course - Lab Results Lab Results: Most Recent Lab Values WBC 4.8 10^3/ul (4.5-11.0) 05/08/17 05:45 RBC 3.95 10^6/uL (3.5-6.1) 05/08/17 05:45 Hgb 11.4 g/dL (12.0-16.0) L 05/08/17 05:45 Hct 35.8 % (36.0-48.0) L 05/08/17 05:45 MCV 90.6 fl (80.0-105.0) 05/08/17 05:45 MCH 28.9 pg (25.0-35.0) 05/08/17 05:45 MCHC 31.8 g/dl (31.0-37.0) 05/08/17 05:45 RDW 14.0 % (11.5-14.5) 05/08/17 05:45 Plt Count 254 10^3/uL (120.0-450.0) 05/08/17 05:45 MPV 9.9 fl (7.0-11.0) 05/08/17 05:45 Gran % 53.4 % (50.0-68.0) 05/08/17 05:45 Lymph % (Auto) 35.4 % (22.0-35.0) H 05/08/17 05:45 Pi[place] % (Auto) 7.4 % (1.0-6.0) H 05/08/17 05:45 Eos % (Auto) 3.6 % (1.5-5.0) 05/08/17 05:45 Baso % (Auto) 0.2 % (0.0-3.0) 05/08/17 05:45 Gran # 2.54 (1.4-6.5) 05/08/17 05:45 Lymph # (Auto) 1.7 (1.2-3.4) 05/08/17 05:45 [place] # (Auto) 0.4 (0.1-0.6) 05/08/17 05:45 Eos # (Auto) 0.2 (0.0-0.7) 05/08/17 05:45 Baso # (Auto) 0.01 K/mm3 (0.0-2.0) 05/08/17 05:45 PT 12.0 SECONDS (9.4-12.5) 05/06/17 12:17 INR 1.04 (0.93-1.08) 05/06/17 12:17 APTT 26.5 Seconds (25.1-36.5) 05/06/17 12:17 pO2 40 mm/Hg (30-55) 05/06/17 15:50 VBG pH 7.31 (7.32-7.43) L 05/06/17 15:50 VBG pCO2 51.0 (40-60) 05/06/17 15:50 VBG HCO3 25.7 mmol/l (21-28) 05/06/17 15:50 VBG Total CO2 27.3 mmol.L (22-28) 05/06/17 15:50 VBG O2 Sat (Calc) 79.0 % (40-65) H 05/06/17 15:50 VBG Base Excess -1.2 mmol/L (0.0-2.0) L 05/06/17 15:50 VBG Potassium 3.8 mmol/L (3.6-5.2) 05/06/17 15:50 Sodium 140.0 mmol/L (132-148) 05/06/17 15:50 Chloride 109.0 mmol/L (98-107) H 05/06/17 15:50 Glucose 90 mg/dl (65-105) 05/06/17 15:50 Lactate 0.9 mmol/L (0.7-2.1) 05/06/17 15:50 FiO2 21.0 % 05/06/17 15:50 Sodium 139 mmol/L (132-148) 05/08/17 05:45 Potassium 3.7 mmol/L (3.6-5.0) 05/08/17 05:45 Chloride 109 mmol/L (98-107) H 05/08/17 05:45 Carbon Dioxide 24 mmol/L (21-33) 05/08/17 05:45 Anion Gap 10 (10-20) 05/08/17 05:45 BUN 4 mg/dL (7-21) L 05/08/17 05:45 Creatinine 0.7 mg/dl (0.7-1.2) 05/08/17 05:45 Est GFR ( Amer) > 60 05/08/17 05:45 Est GFR (Non-Af Amer) > 60 05/08/17 05:45 POC Glucose (mg/dL) 101 mg/dL (65-110) 05/10/17 07:19 Random Glucose 92 mg/dL (70-110) 05/08/17 05:45 Hemoglobin A1c 5.9 % (4.2-6.5) 05/07/17 05:15 Calcium 8.9 mg/dL (8.4-10.5) 05/08/17 05:45 Total Bilirubin 0.9 mg/dL (0.2-1.3) 05/08/17 05:45 AST 16 U/L (14-36) 05/08/17 05:45 ALT 25 U/L (7-56) 05/08/17 05:45 Alkaline Phosphatase 51 U/L (38-126) 05/08/17 05:45 Troponin I < 0.01 ng/mL 05/06/17 12:17 Total Protein 6.0 g/dL (5.8-8.3) 05/08/17 05:45 Albumin 3.2 g/dL (3.0-4.8) 05/08/17 05:45 Globulin 2.8 gm/dL 05/08/17 05:45 Albumin/Globulin Ratio 1.1 (1.1-1.8) 05/08/17 05:45 Lipase 360 U/L (23-300) H 05/06/17 12:17 TSH 3rd Generation 2.95 mIU/mL (0.46-4.68) 05/07/17 05:15 Venous Blood Potassium 3.8 mmol/L (3.6-5.2) 05/06/17 15:50 Urine Color Yellow (YELLOW) 05/06/17 12:40 Urine Appearance Clear (CLEAR) 05/06/17 12:40 Urine pH 8.0 (4.7-8.0) 05/06/17 12:40 Ur Specific [place] 1.015 (1.005-1.035) 05/06/17 12:40 Urine Protein Trace mg/dL (<30 mg/dL) H 05/06/17 12:40 Urine Glucose (UA) Negative mg/dL (NEGATIVE) 05/06/17 12:40 Urine Ketones Trace mg/dL (NEGATIVE) H 05/06/17 12:40 Urine Blood Trace-intact (NEGATIVE) H 05/06/17 12:40 Urine Nitrate Negative (NEGATIVE) 05/06/17 12:40 Urine Bilirubin Negative (NEGATIVE) 05/06/17 12:40 Urine Urobilinogen 0.2 E.U./dL (<1 E.U./dL) 05/06/17 12:40 Ur Leukocyte Esterase Negative Jesus/uL (NEGATIVE) 05/06/17 12:40 Urine RBC 2 - 5 /hpf (0-2) 05/06/17 12:40 Urine WBC 0 - 2 /hpf (0-6) 05/06/17 12:40 Ur Epithelial Cells 4 - 5 /hpf (0-5) 05/06/17 12:40 Amorphous Sediment Moderate 05/06/17 12:40 Urine Bacteria Many (NEG) 05/06/17 12:40 Urine Other Uyeast 05/06/17 12:40 Urine Opiates Screen Positive (NEGATIVE) H 05/06/17 14:10 Urine Methadone Screen Negative (NEGATIVE) 05/06/17 14:10 Ur Barbiturates Screen Negative (NEGATIVE) 05/06/17 14:10 Ur Phencyclidine Scrn Negative (NEGATIVE) 05/06/17 14:10 Ur Amphetamines Screen Negative (NEGATIVE) 05/06/17 14:10 U Benzodiazepines Scrn Negative (NEGATIVE) 05/06/17 14:10 U Oth Cocaine Metabols Positive (NEGATIVE) H 05/06/17 14:10 U Cannabinoids Screen Positive (NEGATIVE) H 05/06/17 14:10 Blood Type B POSITIVE 05/06/17 12:15 Blood Type Confirm B POSITIVE 05/07/17 05:15 Antibody Screen Negative 05/06/17 12:15 BBK History Checked No verified bt 05/06/17 12:15 - Hospital Course Hospital Course: This is a 41 year old female with a past medical history significant for DM2, hypothyroidism and cholelithiasis s/p cholecystectomy (2003) who presented with 36 hours of epigastric pain, nausea and greater than 10 episodes of coffee ground emesis. Patient has been without vomiting since admission and with significantly improved abdominal pain. Patient was incidentally found to have a left renal mass, 2.1 cm, on CT abdomen, and underwent Abd MRI which indicated likely benign mass. Patient underwent EGD with Dr. Foley that revealed multiple superficial gastric ulcers, and was instructed to follow-up with GI in 1 week for follow up, take Carafate and Protonix (scripts provided), and to avoid all NSAIDs, including her Mobic. Patient also seen by Psych while here, who recommended follow up with Psych service of her choice as outpt, and cleared her for discharge. Instructions reviewed with patient, who expressed understanding and agreement. She was then discharged home. Patient seen, reviewed, and discussed with attending, Dr. Luque. Discharge Exam - Additional Findings Additional findings: - Constitutional Appears: Non-toxic, No Acute Distress - Head Exam Head Exam: ATRAUMATIC, NORMOCEPHALIC - Eye Exam Eye Exam: EOMI, PERRL Pupil Exam: NORMAL ACCOMODATION - ENT Exam ENT Exam: Normal inspection, no pharyngeal erythema/edema - Neck Exam Neck Exam: Full ROM. absent: Lymphadenopathy - Respiratory Exam Respiratory Exam: Clear to Ausculation Bilateral, NORMAL BREATHING PATTERN. absent: Accessory Muscle Use, Chest Wall Tenderness, Decreased Breath Sounds, Prolonged Expiratory Phase, Rales, Rhonchi, Wheezes, Respiratory Distress - Cardiovascular Exam Cardiovascular Exam: REGULAR RHYTHM, RRR, +S1, +S2. absent: Tachycardia - GI/Abdominal Exam GI & Abdominal Exam: Soft, Normal Bowel Sounds. absent: Distended, Firm, Guarding, Tenderness, Rebound - Extremities Exam Extremities Exam: Full ROM, Normal Capillary Refill. absent: Calf Tenderness, Joint Swelling, Pedal Edema, Tenderness - Neurological Exam Neurological Exam: Alert, Awake, Oriented x3, Ambulating well with normal gait - Psychiatric Exam Psychiatric exam: Normal affect, normal mood - Skin Skin Exam: Dry, Intact, Normal Color, Warm Discharge Plan - Follow Up Plan Condition: STABLE Disposition: HOME/ ROUTINE Instructions: Depression, Soft Diet, Depression, Adult (DC), Gastric Ulcer (DC) , Gastritis (DC), Pantoprazole, Sucralfate, Tips for How to Help Your Mood, Pureed Diet Additional Instructions: Please follow up with Dr. Foley, Gastroenterology, within one week for post EGD/hospitalization follow up. His contact information is included in this paperwork. He recommends that you begin taking two medications, Carafate and Protonix. He also recommends that you avoid NSAID medications for pain relief, including Ibuprofen, Aleve, Mobic, and other medications in this class. Should you have any questions regarding which medications are in this family, please seek assistance from a pharmacist before purchasing. It is also recommended that your diet should consist of soft and/or pureed foods until you can tolerate a regular diet without nausea or vomiting. The [facility] recommend that you follow up with a Psychiatrist of your choice or to be seen at a community behavioral health unit of your choice. For a list of providers that is in your network, please contact a abrasives sales representative from your health insurance company. Contact information has been provided in this paperwork for several community health units should you need recommendations. 1. [facility]- [phone] 2. [facility]- [phone] 3. [facility]- [phone] 4. [facility]- [phone] Please continue follow up with your CHIEF OF POLICE as scheduled on 05/10/2017 Please take all medications as prescribed Stop taking Mobic until otherwise cleared by GI Please followup with your primary care doctor within one week. Please bring the results of your abdominal MRI with you to discuss appropriate monitoring going forward Should your symptoms worsen or persist, please seek emergency medical attention Referrals: Reyna Snaders MD [Primary Care Provider] - Lenny Foley MD [Medical Doctor] - <Corey Luque - Last Filed: 05/10/17 13:56> Provider - Provider Date of Admission: 05/08/17 18:14 Attending physician: Corey Luque MD Primary care physician: Reyna Sanders MD Hospital Course - Lab Results Lab Results: Most Recent Lab Values WBC 4.8 10^3/ul (4.5-11.0) 05/08/17 05:45 RBC 3.95 10^6/uL (3.5-6.1) 05/08/17 05:45 Hgb 11.4 g/dL (12.0-16.0) L 05/08/17 05:45 Hct 35.8 % (36.0-48.0) L 05/08/17 05:45 MCV 90.6 fl (80.0-105.0) 05/08/17 05:45 MCH 28.9 pg (25.0-35.0) 05/08/17 05:45 MCHC 31.8 g/dl (31.0-37.0) 05/08/17 05:45 RDW 14.0 % (11.5-14.5) 05/08/17 05:45 Plt Count 254 10^3/uL (120.0-450.0) 05/08/17 05:45 MPV 9.9 fl (7.0-11.0) 05/08/17 05:45 Gran % 53.4 % (50.0-68.0) 05/08/17 05:45 Lymph % (Auto) 35.4 % (22.0-35.0) H 05/08/17 05:45 Pi[place] % (Auto) 7.4 % (1.0-6.0) H 05/08/17 05:45 Eos % (Auto) 3.6 % (1.5-5.0) 05/08/17 05:45 Baso % (Auto) 0.2 % (0.0-3.0) 05/08/17 05:45 Gran # 2.54 (1.4-6.5) 05/08/17 05:45 Lymph # (Auto) 1.7 (1.2-3.4) 05/08/17 05:45 [place] # (Auto) 0.4 (0.1-0.6) 05/08/17 05:45 Eos # (Auto) 0.2 (0.0-0.7) 05/08/17 05:45 Baso # (Auto) 0.01 K/mm3 (0.0-2.0) 05/08/17 05:45 PT 12.0 SECONDS (9.4-12.5) 05/06/17 12:17 INR 1.04 (0.93-1.08) 05/06/17 12:17 APTT 26.5 Seconds (25.1-36.5) 05/06/17 12:17 pO2 40 mm/Hg (30-55) 05/06/17 15:50 VBG pH 7.31 (7.32-7.43) L 05/06/17 15:50 VBG pCO2 51.0 (40-60) 05/06/17 15:50 VBG HCO3 25.7 mmol/l (21-28) 05/06/17 15:50 VBG Total CO2 27.3 mmol.L (22-28) 05/06/17 15:50 VBG O2 Sat (Calc) 79.0 % (40-65) H 05/06/17 15:50 VBG Base Excess -1.2 mmol/L (0.0-2.0) L 05/06/17 15:50 VBG Potassium 3.8 mmol/L (3.6-5.2) 05/06/17 15:50 Sodium 140.0 mmol/L (132-148) 05/06/17 15:50 Chloride 109.0 mmol/L (98-107) H 05/06/17 15:50 Glucose 90 mg/dl (65-105) 05/06/17 15:50 Lactate 0.9 mmol/L (0.7-2.1) 05/06/17 15:50 FiO2 21.0 % 05/06/17 15:50 Sodium 139 mmol/L (132-148) 05/08/17 05:45 Potassium 3.7 mmol/L (3.6-5.0) 05/08/17 05:45 Chloride 109 mmol/L (98-107) H 05/08/17 05:45 Carbon Dioxide 24 mmol/L (21-33) 05/08/17 05:45 Anion Gap 10 (10-20) 05/08/17 05:45 BUN 4 mg/dL (7-21) L 05/08/17 05:45 Creatinine 0.7 mg/dl (0.7-1.2) 05/08/17 05:45 Est GFR ( Amer) > 60 05/08/17 05:45 Est GFR (Non-Af Amer) > 60 05/08/17 05:45 POC Glucose (mg/dL) 101 mg/dL (65-110) 05/10/17 07:19 Random Glucose 92 mg/dL (70-110) 05/08/17 05:45 Hemoglobin A1c 5.9 % (4.2-6.5) 05/07/17 05:15 Calcium 8.9 mg/dL (8.4-10.5) 05/08/17 05:45 Total Bilirubin 0.9 mg/dL (0.2-1.3) 05/08/17 05:45 AST 16 U/L (14-36) 05/08/17 05:45 ALT 25 U/L (7-56) 05/08/17 05:45 Alkaline Phosphatase 51 U/L (38-126) 05/08/17 05:45 Troponin I < 0.01 ng/mL 05/06/17 12:17 Total Protein 6.0 g/dL (5.8-8.3) 05/08/17 05:45 Albumin 3.2 g/dL (3.0-4.8) 05/08/17 05:45 Globulin 2.8 gm/dL 05/08/17 05:45 Albumin/Globulin Ratio 1.1 (1.1-1.8) 05/08/17 05:45 Lipase 360 U/L (23-300) H 05/06/17 12:17 TSH 3rd Generation 2.95 mIU/mL (0.46-4.68) 05/07/17 05:15 Plasma Metanephrine <25 pg/mL (<=57) 05/07/17 06:30 Plasma Normetanephrine 95 pg/mL (<=148) 05/07/17 06:30 Plas Total Metaneph 95 pg/mL (<=205) 05/07/17 06:30 Venous Blood Potassium 3.8 mmol/L (3.6-5.2) 05/06/17 15:50 Urine Color Yellow (YELLOW) 05/06/17 12:40 Urine Appearance Clear (CLEAR) 05/06/17 12:40 Urine pH 8.0 (4.7-8.0) 05/06/17 12:40 Ur Specific [place] 1.015 (1.005-1.035) 05/06/17 12:40 Urine Protein Trace mg/dL (<30 mg/dL) H 05/06/17 12:40 Urine Glucose (UA) Negative mg/dL (NEGATIVE) 05/06/17 12:40 Urine Ketones Trace mg/dL (NEGATIVE) H 05/06/17 12:40 Urine Blood Trace-intact (NEGATIVE) H 05/06/17 12:40 Urine Nitrate Negative (NEGATIVE) 05/06/17 12:40 Urine Bilirubin Negative (NEGATIVE) 05/06/17 12:40 Urine Urobilinogen 0.2 E.U./dL (<1 E.U./dL) 05/06/17 12:40 Ur Leukocyte Esterase Negative Jesus/uL (NEGATIVE) 05/06/17 12:40 Urine RBC 2 - 5 /hpf (0-2) 05/06/17 12:40 Urine WBC 0 - 2 /hpf (0-6) 05/06/17 12:40 Ur Epithelial Cells 4 - 5 /hpf (0-5) 05/06/17 12:40 Amorphous Sediment Moderate 05/06/17 12:40 Urine Bacteria Many (NEG) 05/06/17 12:40 Urine Other Uyeast 05/06/17 12:40 Urine Opiates Screen Positive (NEGATIVE) H 05/06/17 14:10 Urine Methadone Screen Negative (NEGATIVE) 05/06/17 14:10 Ur Barbiturates Screen Negative (NEGATIVE) 05/06/17 14:10 Ur Phencyclidine Scrn Negative (NEGATIVE) 05/06/17 14:10 Ur Amphetamines Screen Negative (NEGATIVE) 05/06/17 14:10 U Benzodiazepines Scrn Negative (NEGATIVE) 05/06/17 14:10 U Oth Cocaine Metabols Positive (NEGATIVE) H 05/06/17 14:10 U Cannabinoids Screen Positive (NEGATIVE) H 05/06/17 14:10 Blood Type B POSITIVE 05/06/17 12:15 Blood Type Confirm B POSITIVE 05/07/17 05:15 Antibody Screen Negative 05/06/17 12:15 BBK History Checked No verified bt 05/06/17 12:15 Attending/Attestation - Attestation I have personally seen and examined this patient.: Yes I have fully participated in the care of the patient.: Yes I have reviewed all pertinent clinical information, including history, physical exam and plan: Yes Notes (Text): 05/10/17 13:52 41 year old female with past medical history of diabetes and hypothyroidism who presented with complaint of epigastric pain, nausea and vomiting with coffee ground emesis which has improved with iv protonix and zofran prn. She was seen by GI and underwent EGD which showed multiple gastric ulcers and duodenal ulcer. She is now tolerated diet. She is cleared for discharge on PPI/ carafate with recommendation to avoid NSAIDs and repeat EGD in few weeks as above. CT abd/pelvis also showed adrenal incidentaloma. MRI abd/pelvis showed benign adrenal ademona. Recommended outpatient follow up. She also had adnexal cyst for which she was advised to follow up with barrel rib matting machine operator as outpatient. UTox was positive for cocaine, opiates and cannabinoids. Patient was counselled on risks of continued substance abuse. During hospital stay she complained of depressed mood. She was seen by psychiatrist. Today she denies depressed mood and wants to go home. Denies any SI/HI. She was again seen by psychiatry and cleared for discharge home. Patient is discharged home on PPI and carafate. Counselled on avoiding NSAIDs. Counselled on risks of continued substance abuse. Recommended to follow up with GI for repeat EGD. Follow up with barrel rib matting machine operator. Follow up with psychiatrist or [facility]. Corey Luque MD Hospitalist.
--- NOTE | 2017-05-10 16:05 | PN ---
DATE: PRESENTATION: She is being seen today for a followup consultation. The patient is a 41-year-old -[place] female seen at bedside. The patient was originally admitted to the hospital on 05/06/2017 for nausea and vomiting with coffee ground emesis and epigastric discomfort. Evidently, she felt that if she smoked pot, it would help with the nausea and she started feeling hot and having palpitations and heart racing, so she came to the emergency room. Psychiatric consult was ordered due to depression. The patient was initially seen for consultation on 05/08/2017 and I followed up with her yesterday as she indicated that she wanted some outpatient referral, but had not been suicidal or homicidal at the time when first seen. When I met with her the second time, the patient was quite tearful, indicated that she was feeling very depressed, that she wanted help right now, not to have to call an agency and wait for an appointment that she needed help right away. She could not specifically tell me if she was suicidal or homicidal. Indicated that she was afraid she might hurt herself. At that point, I discussed with the patient whether or not she was willing to sign into the psychiatric unit and the patient at that time indicated that she would like to do that, so I spoke with Dr. Aviles and the plan was for her to come upstairs, later on in the day when the bed was available and when the [employer] Teacher came to sign her in, the patient changed her mind indicating that she would rather have her cell phone with her. The nurses called me and the patient agreed to stay for face to face today. In seeing the patient today, she is affectively improved. She indicates that some family members have visited her, that she is feeling more positive, that she is not hopeless. She is looking forward to following up, but she also feels like she has gotten her support system in order and that is really important to her. We went over the referrals I gave her, she is pleased with these and she denies being suicidal at this time. VITAL SIGNS: The patient's current vital signs include temperature of 99.1, pulse of 62, blood pressure of 123/86, respiratory rate of 20 and O2 sat of 100%. MENTAL STATUS EXAM: The patient is alert and oriented x3. Eye contact is good. Behavior is cooperative. Speech rate and volume are within normal limits. Mood is euthymic. Affect is full. Thoughts are goal directed at times and other times are it is tangential and over productive. The patient denies being suicidal or homicidal, indicates that she would not hurt herself that she is no longer feeling this way. She feels hopeful for the future. She has mobilized some of her support systems and plans to follow up outpatient to get a therapist. She denies being homicidal. She denies the presence of hallucinations, delusions or paranoia. Her concentration is focused or adequate. Her memory both short and long-term is good. Her appetite, she reports is good and she indicates she is sleeping better at night. DIAGNOSTIC IMPRESSION: Depressive disorder, unspecified. PLAN: The patient denies being suicidal or homicidal at this time, is making plans for the future and does not appear to be in any eminent danger of hurting herself or others. She is agreeable to utilizing our emergency room should she feel this way again. I also discussed with her the effects of substances on mood and anxiety. The patient indicates that she is afraid to use pot again due to the fact that she indicates that she did not use cocaine or opioids and here they were in her urine and she feels it is due to the something in the pot being tainted, so she indicates that she will no longer be smoking pot or using illicit drugs that they scared her. The patient is psychiatrically cleared for discharge. She has a list of referrals and is willing to utilize emergency services if she needs in future. Thank you for the consult. Milena Lee APN FRANCIS
== END 2017-05-10 10:59 | disposition home or self-care (01) | DRG 174 ==
LOC: ED 11:49 → ERH 18:31 → 3RNO 20:01 → OBSVTOIN 05-08 18:14
PROVIDERS: ADMIT Internal Medicine; ATTEND Internal Medicine
PROC: 0DB68ZX Excision of Stomach, Via Natural or Artificial Opening Endoscopic, Diagnostic (ICD-10-PCS; principal; 2017-05-08 14:00)
DX: K92.0 Hematemesis (principal); E87.6 Hypokalemia; K25.9 Gastric ulcer, unspecified as acute or chronic, without hemorrhage or perforation; K26.9 Duodenal ulcer, unspecified as acute or chronic, without hemorrhage or perforation; K29.70 Gastritis, unspecified, without bleeding; K29.80 Duodenitis without bleeding; B96.81 Helicobacter pylori [H. pylori] as the cause of diseases classified elsewhere; F33.9 Major depressive disorder, recurrent, unspecified; D35.00 Benign neoplasm of unspecified adrenal gland; E03.9 Hypothyroidism, unspecified; E11.9 Type 2 diabetes mellitus without complications; F12.10 Cannabis abuse, uncomplicated; F41.9 Anxiety disorder, unspecified; N83.209 Unspecified ovarian cyst, unspecified side; Z87.891 Personal history of nicotine dependence; Z79.84 Long term (current) use of oral hypoglycemic drugs

== ENCOUNTER 2017-06-29 16:43 | Emergency (ER) | payer SELFPAY ==
[2017-06-29 16:54] VITALS: BMI 33.3
--- NOTE | 2017-06-29 17:24 | ED PDOC ---
Arrival/HPI - General Chief Complaint: Back Pain Time Seen by Provider: 06/29/17 17:04 Historian: Patient - History of Present Illness Narrative History of Present Illness (Text): 06/29/17 17:24 41 year old female presents to the ED complaining of bleeding hemorrhoids and pain while trying to defecate x 1 week. States she has hard, dry stool that is difficult to pass that results in streaks of blood on the tissue when she wipes. Says she has not eaten a lot since being diagnosed with PUD thus does not have significant fiber or fluids in her diet. Uses Preparation-H q4 hrs but no change in pain. Last BM this morning and passing gas since then but admits pain is intense. Denies fever, chills, nausea, vomiting, diarrhea, anal sex or foreign body trauma, back pain, abdominal pain, weakness, LOC, or nay other complaints 06/29/17 17:39 Time/Duration: > week Symptom Onset: Gradual Symptom Course: Unchanged Quality: Pressure, Throbbing Severity Level: 5 Activities at Onset: Rest, Light Context: Home Past Medical History - Provider Review Nursing Documentation Reviewed: Yes - Travel History Have you recently traveled outside [place] w/in the past 3 mons?: No - Infectious Disease Hx of Infectious Diseases: None - Cardiac Hx Cardiac Disorders: No - Pulmonary Hx Respiratory Disorders: No - Neurological Hx Neurological Disorder: No - HEENT Hx HEENT Disorder: No - Renal Hx Renal Disorder: No - Endocrine/Metabolic Hx Endocrine Disorders: Yes Hx Diabetes Mellitus Type 2: Yes Hx Hypothyroidism: Yes - Hematological/Oncological Hx Blood Disorders: Yes Hx Anemia: Yes - Integumentary Hx Dermatological Disorder: No - Musculoskeletal/Rheumatological Hx Musculoskeletal Disorders: Yes Hx Arthritis: Yes Hx Falls: Yes Hx Fractures: Yes (left tibia as a child) Hx Unsteady Gait: Yes - Gastrointestinal Hx Gastrointestinal Disorders: No - Genitourinary/Gynecological Hx Genitourinary Disorders: No - Psychiatric Hx Psychophysiologic Disorder: No Hx Anxiety: Yes Hx Depression: Yes Hx Substance Use: Yes (MARIJUANA , DENIES COCAINE, TE DUST IN THE PAST) - Surgical History Hx Cholecystectomy: Yes Other/Comment: lt tibia sx with pins - Anesthesia Hx Anesthesia Reactions: No Hx Malignant Hyperthermia: No Family/Social History - Physician Review Nursing Documentation Reviewed: Yes Family/Social History: Unknown Family HX Smoking Status: Light Smoker < 10 Cigarettes Daily Hx Alcohol Use: No Hx Substance Use: Yes (MARIJUANA , DENIES COCAINE, TE DUST IN THE PAST) Substance used: thc Allergies/Home Meds Allergies/Adverse Reactions: Allergies tomato Allergy (Verified 12/07/16 13:32) RASH Review of Systems - Review of Systems Constitutional: Normal Eyes: Normal ENT: Normal Respiratory: Normal Cardiovascular: Normal Gastrointestinal: Normal, Stool Changes (hard and dry), Constipation, Appetite Changes (due to recent gastritis), Hematochezia, Other (hemorrhoids that bleed) . absent: Diarrhea Genitourinary Female: Normal Musculoskeletal: Normal Skin: Normal Neurological: Normal Endocrine: Normal Hemo/Lymphatic: Normal Psychiatric: Normal Physical Exam Vital Signs Reviewed: Yes Vital Signs Temp Pulse Resp BP Pulse Ox 06/29/17 19:42 19 98 06/29/17 19:21 98.0 F 92 H 18 139/89 99 06/29/17 16:44 98.6 F 95 H 18 153/77 H 97 Temperature: Afebrile Blood Pressure: Hypertensive Pulse: Regular Respiratory Rate: Normal Appearance: Positive for: Well-Appearing, Non-Toxic, Uncomfortable Pain Distress: Mild Mental Status: Positive for: Alert and Oriented X 3 - Systems Exam Head: Present: Atraumatic, Normocephalic Pupils: Present: PERRL Extroacular Muscles: Present: EOMI Conjunctiva: Present: Normal Mouth: Present: Moist Mucous Membranes Neck: Present: Normal Range of Motion Respiratory/Chest: Present: Clear to Auscultation, Good Air Exchange. No: Respiratory Distress, Accessory Muscle Use Cardiovascular: Present: Regular Rate and Rhythm, Normal S1, S2. No: Murmurs Abdomen: Present: Normal Bowel Sounds. No: Tenderness, Distention, Peritoneal Signs Rectal: Present: Rectal Tenderness, Hemorrhoids (external, no incarcerated), Normal Rectal Tone, Fissures. No: Occult Blood, Gross Blood Genitourinary/Pelvic Exam: Present: Normal External Genitalia Back: Present: Normal Inspection Upper Extremity: Present: Normal Inspection. No: Cyanosis, Edema Lower Extremity: Present: Normal Inspection. No: Edema Neurological: Present: GCS=15, CN II-XII Intact, Speech Normal Skin: Present: Warm, Dry, Normal Color. No: Rashes Psychiatric: Present: Alert, Oriented x 3, Normal Insight, Normal Concentration Medical Decision Making ED Course and Treatment: 06/29/17 17:28 Impression 41 year old female presents to the ED complaining of bleeding hemorrhoids and pain while trying to defecate x 1 week On exam, no active bleeding, external hemorrhoid not incarcerated, anal fissure likely as pt refused rectal exam d/t exquisite pain; normal rectal sphincter tone, no erythema or edema, no LAD appreciated Plan Anusol suppository and lidocaine crm for pain assess and dispo Progress Note Suppositiry and cream applied which provided good relief Counseled on condition and care for home Instructed to do Sitz bath, tien-maxwell suppository and use lidocaine crm prn F/U with PMD this week - Medication Orders Current Medication Orders: Discontinued Medications Hydrocortisone (Anusol-Hc) 25 mg RC STAT STA Stop: 06/29/17 17:32 Last Admin: 06/29/17 18:45 Dose: 25 mg Lidocaine/Prilocaine (Emla) 5 gm TOP ONCE ONE Stop: 06/29/17 17:34 Last Admin: 06/29/17 18:45 Dose: 5 gm Disposition/Present on Arrival - Present on Arrival Any Indicators Present on Arrival: Yes History of DVT/PE: No History of Uncontrolled Diabetes: Yes Urinary Catheter: No History of Decub. Ulcer: No History Surgical Site Infection Following: None - Disposition Have Diagnosis and Disposition been Completed?: Yes Diagnosis: Anal fissure, Hemorrhoid, Constipation Disposition: HOME/ ROUTINE Disposition Time: 19:08 Patient Plan: Discharge Condition: STABLE Discharge Instructions (ExitCare): Constipation, Adult (DC), Anal Fissure (DC) Additional Instructions: Hossein Reis for letting us take care of you. You have been evaluated for an anal fissure and hemorrhoid. Please use the medication that we suggested and try a Sitz bath for relief. We advise that you see your Primary Doctor in the next few days for further care if needed. If you experience a large amount of blood loss while having a bowel movement, return to the ER. AMY Torres Prescriptions: Docusate Sodium [Colace] 100 mg PO Q12 5 Days #10 capsule Hard Fat/Phenylephrine [place] [Hemorrhoidal 88.7%-0.25%] 1 sup RC Q12 5 Days #10 sup Forms: [facility] (Portuguese), WORK NOTE
[2017-06-29] MEDS ORDERED: Lidocaine/Prilocaine 2.5%-2.5% Cream(30 gm) TOP ONE (17:33)
[2017-06-29 19:22] VITALS: BP 139/89; PULSE 92; TEMP 98
[2017-06-29 19:43] VITALS: RESP 19; O2SAT 98
== END 2017-06-29 19:43 | disposition home or self-care (01) ==
LOC: ED 16:43
DX: K60.2 Anal fissure, unspecified (principal); K64.9 Unspecified hemorrhoids; K59.00 Constipation, unspecified

== ENCOUNTER 2017-10-31 21:57 | Emergency (ER) | payer SELFPAY ==
[2017-10-31 21:58] VITALS: BMI 33.3
[2017-10-31 22:10] VITALS: BP 136/92; PULSE 88; RESP 19; TEMP 98.5; O2SAT 97
--- NOTE | 2017-10-31 23:45 | ED PDOC ---
Arrival/HPI - General Chief Complaint: High Blood Pressure Time Seen by Provider: 10/31/17 23:06 Historian: Patient - History of Present Illness Narrative History of Present Illness (Text): 10/31/17 23:32 A 42 year old female, whose past medical history includes HTN and DM, presents to the emergency department for further evaluation of elevated blood pressure levels today. Patient states that earlier today, her blood pressure was elevated at 142/90. She notes that she became concerned, anxious, and jittery. She states that she checked it again, it was lower and her symptoms resolved. She reports that she is not on any medications.The patient presents to the emergency department for further evaluation and refuses to take any new medications in the emergency department. The patient denies fevers, chills, headache, dizziness, sore throat, cough, chest pain, shortness of breath, dyspnea on exertion, abdominal pain, nausea, vomiting, diarrhea, neck/back pain , urinary/bowel changes or any other complaint. PMD: Dr. Sanders Time/Duration: Other (Today) Symptom Onset: Sudden Symptom Course: Unchanged Activities at Onset: Rest, Light Context: Home Past Medical History - Provider Review Nursing Documentation Reviewed: Yes - Infectious Disease Hx of Infectious Diseases: None - Cardiac Hx Cardiac Disorders: No - Pulmonary Hx Respiratory Disorders: No - Neurological Hx Neurological Disorder: No - HEENT Hx HEENT Disorder: No - Renal Hx Renal Disorder: No - Endocrine/Metabolic Hx Endocrine Disorders: Yes Hx Diabetes Mellitus Type 2: Yes Hx Hypothyroidism: Yes - Hematological/Oncological Hx Blood Disorders: Yes Hx Anemia: Yes - Integumentary Hx Dermatological Disorder: No - Musculoskeletal/Rheumatological Hx Musculoskeletal Disorders: Yes Hx Arthritis: Yes Hx Falls: Yes Hx Fractures: Yes (left tibia as a child) Hx Unsteady Gait: Yes - Gastrointestinal Hx Gastrointestinal Disorders: No - Genitourinary/Gynecological Hx Genitourinary Disorders: No - Psychiatric Hx Psychophysiologic Disorder: No Hx Anxiety: Yes Hx Depression: Yes Hx Substance Use: Yes (MARIJUANA , DENIES COCAINE, TE DUST IN THE PAST) - Surgical History Hx Cholecystectomy: Yes Other/Comment: lt tibia sx with pins - Anesthesia Hx Anesthesia Reactions: No Hx Malignant Hyperthermia: No Family/Social History - Physician Review Nursing Documentation Reviewed: Yes Family/Social History: No Known Family HX Smoking Status: Light Smoker < 10 Cigarettes Daily Hx Alcohol Use: No Hx Substance Use: Yes (MARIJUANA , DENIES COCAINE, TE DUST IN THE PAST) Substance used: thc Allergies/Home Meds Allergies/Adverse Reactions: Allergies tomato Allergy (Verified 12/07/16 13:32) RASH Review of Systems - Physician Review All systems were reviewed & negative as marked: Yes - Review of Systems Constitutional: absent: Fevers Respiratory: absent: SOB, Cough Cardiovascular: absent: Chest Pain, SCOTT Gastrointestinal: absent: Abdominal Pain, Stool Changes, Diarrhea, Nausea, Vomiting Genitourinary Female: absent: Urine Output Changes Musculoskeletal: absent: Back Pain, Neck Pain Neurological: absent: Headache, Dizziness Physical Exam Vital Signs Reviewed: Yes Vital Signs Temp Pulse Resp BP Pulse Ox 10/31/17 22:36 136/92 H 10/31/17 22:08 98.5 F 88 19 136/92 H 97 Temperature: Afebrile Blood Pressure: Hypertensive Pulse: Regular Respiratory Rate: Normal Appearance: Positive for: Well-Appearing, Non-Toxic, Comfortable Pain Distress: None Mental Status: Positive for: Alert and Oriented X 3 Finger Stick Blood Glucose: 86 - Systems Exam Head: Present: Atraumatic, Normocephalic Pupils: Present: PERRL Extroacular Muscles: Present: EOMI Conjunctiva: Present: Normal Mouth: Present: Moist Mucous Membranes Neck: Present: Normal Range of Motion Respiratory/Chest: Present: Clear to Auscultation, Good Air Exchange. No: Respiratory Distress, Accessory Muscle Use Cardiovascular: Present: Regular Rate and Rhythm, Normal S1, S2. No: Murmurs Abdomen: No: Tenderness, Distention, Peritoneal Signs Back: Present: Normal Inspection Upper Extremity: Present: Normal Inspection. No: Cyanosis, Edema Lower Extremity: Present: Normal Inspection. No: Edema Neurological: Present: GCS=15, CN II-XII Intact, Speech Normal Skin: Present: Warm, Dry, Normal Color. No: Rashes Psychiatric: Present: Alert, Oriented x 3, Normal Insight, Normal Concentration Medical Decision Making ED Course and Treatment: 10/31/17 23:45 Impression: A 39 year old female presents to the emergency department with assymptomatic hypertension. Given normal neurological exam, physical exam, and decreased blood pressure, will have patient follow up with PMD. Plan: -- Labs -- Reassess and disposition Prior Visits: Notes and results from previous visits were reviewed. Progress Notes: Patient is in no acute distress. Patient given the opportunity to ask question, all questions were answered and there is agreement with the plan to discharge the patient home. Patient is stable for discharge. Patient was instructed to follow up with physician/clinic in 1-2 days or return if symptoms persist/ worsen or new concerning symptoms arise. 10/31/17 23:50: Patient eloped. - Lab Interpretations Lab Results: Lab Results 10/31/17 23:24: POC Glucose (mg/dL) 86 I have reviewed the lab results: Yes - Scribe Statement The provider has reviewed the documentation as recorded by the Scribe Cassidy Laurent Provider Scribe Attestation: All medical record entries made by the Scribe were at my direction and personally dictated by me. I have reviewed the chart and agree that the record accurately reflects my personal performance of the history, physical exam, medical decision making, and the department course for this patient. I have also personally directed, reviewed, and agree with the discharge instructions and disposition. Disposition/Present on Arrival - Present on Arrival Any Indicators Present on Arrival: No History of DVT/PE: No History of Uncontrolled Diabetes: Yes Urinary Catheter: No History of Decub. Ulcer: No History Surgical Site Infection Following: None - Disposition Have Diagnosis and Disposition been Completed?: Yes Diagnosis: Hypertension Disposition: ELOPEMENT - ER ONLY Disposition Time: 23:25 Condition: GOOD Referrals: Jessika Sainz MD [Medical Doctor] - Follow up with primary Forms: [employer] (Montenegrin)
== END 2017-11-01 00:43 | disposition left against medical advice (07) ==
LOC: ED 21:57
DX: I10 Essential (primary) hypertension (principal); E11.9 Type 2 diabetes mellitus without complications; E03.9 Hypothyroidism, unspecified; F17.210 Nicotine dependence, cigarettes, uncomplicated

== ENCOUNTER 2017-12-30 09:37 | Emergency (ER) | payer MEDICAID, OTHER ==
[2017-12-30 09:37] VITALS: BMI 33.3
[2017-12-30 10:44] VITALS: PULSE 73; RESP 18; TEMP 98.6
[2017-12-30] MEDS ORDERED: Sodium Chloride 0.9% 1,000 ML IV STA (10:45)
[2017-12-30 11:02] LABS: URINE BILIRUBIN NEGATIVE (NEGATIVE); URINE BLOOD SMALL (NEGATIVE); URINE GLUCOSE (UA) NEGATIVE (NEGATIVE); URINE LEUKOCYTE ESTERASE TRACE Leu/uL (NEGATIVE); URINE PROTEIN TRACE mg/dL (<30 mg/dL); URINE UROBILINOGEN 0.2 E.U./dL (<1 E.U./dL)
[2017-12-30 11:11] LABS: URINE APPEARANCE CLEAR (CLEAR); URINE COLOR YELLOW (YELLOW)
[2017-12-30 11:21] LABS: BASO # 0.01 K/mm3 (0.0-2.0); BASO % 0.1 % (0.0-3.0); EOS # 0.2 (0.0-0.7); EOS % 2.8 % (1.5-5.0); GRAN # 4.68 (1.4-6.5); HEMOGLOBIN 11.4 g/dL (12.0-16.0); LYMPH # 1.4 (1.2-3.4); LYMPH % 20.6 % (22.0-35.0); MEAN CELL VOLUME 88.1 fl (80.0-105.0); MEAN CORPUSCULAR HEMOGLOBIN 28.3 pg (25.0-35.0); MEAN CORPUSCULAR HGB CONC 32.1 g/dl (31.0-37.0); MEAN PLATELET VOLUME 9.3 fl (7.0-11.0); MONO # 0.5 (0.1-0.6); MONO % 7.5 % (1.0-6.0); RBC 4.03 10^6/uL (3.5-6.1); WHITE BLOOD COUNT 6.8 10^3/ul (4.5-11.0)
[2017-12-30 11:23] LABS: URINE BACTERIA MANY (NEG)
[2017-12-30 11:24] LABS: URINE AMORPHOUS SEDIMENT FEW
[2017-12-30 11:29] LABS: ALB/GLOB RATIO 1.2 (1.1-1.8); ALBUMIN 3.7 g/dL (3.0-4.8); ALT/SGPT 29 U/L (7-56); AST/SGOT 17 U/L (14-36); BLOOD UREA NITROGEN 8 mg/dL (7-21); CALCIUM 8.7 mg/dL (8.4-10.5); GFR NON-AFRICAN AMERICAN > 60; LIPASE 435 U/L (23-300); PARTIAL THROMBOPLASTIN TIME 26.8 Seconds (25.1-36.5); PROTHROMBIN TIME 11.5 SECONDS (9.4-12.5)
[2017-12-30] MEDS ORDERED: Iohexol 350 MG/100 ML VIAL ONE (11:42)
--- NOTE | 2017-12-30 13:40 | CT ---
Date of service: 12/30/2017 PROCEDURE: CT Abdomen and Pelvis with contrast HISTORY: Vomiting, unspecified abdominal pain. COMPARISON: 05/07/2017 MRI abdomen. 05/06/2017 CT thorax abdomen and pelvis. 12/07/2016 pelvic ultrasound. Summary of findings on the comparison examination: Complex left adnexal cystic structure, septated cyst or adjacent cyst versus hydrosalpinx measuring 4.8 cm in greatest diameter. TECHNIQUE: Intravenous contrast dose: 100 cc Omnipaque 300 Radiation dose: Total exam DLP = 1063.11 mGy-cm. This CT exam was performed using one or more of the following dose reduction techniques: Automated exposure control, adjustment of the mA and/or kV according to patient size, and/or use of iterative reconstruction technique. FINDINGS: LOWER THORAX: Unremarkable. LIVER: Hepatic steatosis. No focal masses. No intrahepatic bile duct dilatation or perihepatic ascites. Unremarkable portal veins as visualized. GALLBLADDER AND BILE DUCTS: Status post cholecystectomy. No abnormality is seen in the gallbladder fossa. PANCREAS: Unremarkable. No gross lesion or ductal dilatation. SPLEEN: Unremarkable. ADRENALS: Stable enlargement left adrenal gland. Unremarkable right adrenal gland. KIDNEYS AND URETERS: Unremarkable. No hydronephrosis. No solid mass. VASCULATURE: Unremarkable. No aortic aneurysm. No atherosclerotic calcification or mural plaque present. BOWEL: Unremarkable. No obstruction. No gross mural thickening. APPENDIX: A normal appendix is visualized in it's entirety. PERITONEUM: Unremarkable. No free fluid. No free air. LYMPH NODES: Unremarkable. No enlarged lymph nodes. BLADDER: Unremarkable. REPRODUCTIVE: No significant interval change. Stable cystic mass interposed between the rectum and fibroid uterus consistent with findings of hydrosalpinx. CT measurements 2.7 x 4.4 x 5.9 cm. Right adnexal cyst 2.2 x 3.2 cm. Similar findings identified on prior CT. BONES: No acute fracture. OTHER FINDINGS: None. IMPRESSION: No acute findings related to/accounting for the clinical presentation. Additional benign and/or incidental findings described above. Stable cul-de-sac mass felt to represent hydrosalpinx. No significant interval change compared to the prior examination(s). She does distal tibia noted thanks by
--- NOTE | 2017-12-30 14:05 | ED PDOC ---
Arrival/HPI - General Chief Complaint: GI Problem Time Seen by Provider: 12/30/17 10:12 Historian: Patient - History of Present Illness Narrative History of Present Illness (Text): 12/30/17 18:26 42yo female with pmhx of hypothyroid and Diabetes who present with complaint of epigastirc and LUQ abdominal pain that radiates to her back x 2days. Reports nausea and vomiting x 2days. Reports reflux with foods. States she was given medication the last time she was here for GERD which helped her, but she ran out. she denies chest pain, SOB, diarrhea, constipation, fever, chills, sick contact, travel, urinary symptoms, any other complaint. Past Medical History - Provider Review Nursing Documentation Reviewed: Yes - Infectious Disease Hx of Infectious Diseases: None - Cardiac Hx Cardiac Disorders: No - Pulmonary Hx Respiratory Disorders: No - Neurological Hx Neurological Disorder: No - HEENT Hx HEENT Disorder: No - Renal Hx Renal Disorder: No - Endocrine/Metabolic Hx Endocrine Disorders: Yes Hx Diabetes Mellitus Type 2: Yes Hx Hypothyroidism: Yes - Hematological/Oncological Hx Blood Disorders: Yes Hx Anemia: Yes - Integumentary Hx Dermatological Disorder: No - Musculoskeletal/Rheumatological Hx Musculoskeletal Disorders: Yes Hx Arthritis: Yes Hx Falls: Yes Hx Fractures: Yes (left tibia as a child) Hx Unsteady Gait: Yes - Gastrointestinal Hx Gastrointestinal Disorders: No - Genitourinary/Gynecological Hx Genitourinary Disorders: No - Psychiatric Hx Psychophysiologic Disorder: No Hx Anxiety: Yes Hx Depression: Yes Hx Substance Use: Yes (MARIJUANA , DENIES COCAINE, TE DUST IN THE PAST) - Surgical History Hx Cholecystectomy: Yes Other/Comment: lt tibia sx with pins - Anesthesia Hx Anesthesia: Yes Hx Anesthesia Reactions: No Hx Malignant Hyperthermia: No Family/Social History - Physician Review Nursing Documentation Reviewed: Yes Family/Social History: Unknown Family HX Smoking Status: Light Smoker < 10 Cigarettes Daily Hx Alcohol Use: No Hx Substance Use: Yes (MARIJUANA , DENIES COCAINE, TE DUST IN THE PAST) Substance used: thc Allergies/Home Meds Allergies/Adverse Reactions: Allergies tomato Allergy (Verified 12/07/16 13:32) RASH Review of Systems - Physician Review All systems were reviewed & negative as marked: Yes - Review of Systems Constitutional: Normal Eyes: Normal ENT: Normal Respiratory: Normal Cardiovascular: Normal Gastrointestinal: Abdominal Pain, Nausea, Vomiting. absent: Constipation, Diarrhea Genitourinary Female: Normal Musculoskeletal: Normal Skin: Normal Neurological: Normal Endocrine: Normal Hemo/Lymphatic: Normal Psychiatric: Normal Physical Exam Vital Signs Reviewed: Yes Vital Signs Temp Pulse Resp BP Pulse Ox 12/30/17 09:55 98.6 F 73 18 122/78 100 Temperature: Afebrile Blood Pressure: Normal Pulse: Regular Respiratory Rate: Normal Appearance: Positive for: Well-Appearing, Non-Toxic, Comfortable, Other (Morbidly obese) Pain Distress: None Mental Status: Positive for: Alert and Oriented X 3 - Systems Exam Head: Present: Atraumatic, Normocephalic Pupils: Present: PERRL Extroacular Muscles: Present: EOMI Conjunctiva: Present: Normal Mouth: Present: Moist Mucous Membranes. No: Normal Teeth (Mild swelling of the gingiva noted surrounding the right sided lateral incisor) Neck: Present: Normal Range of Motion Respiratory/Chest: Present: Clear to Auscultation, Good Air Exchange. No: Respiratory Distress, Accessory Muscle Use Cardiovascular: Present: Regular Rate and Rhythm, Normal S1, S2. No: Murmurs Abdomen: Present: Tenderness (Mild epigastric tenderness), Normal Bowel Sounds, Other (soft). No: Distention, Peritoneal Signs, Rebound, McBurney's Point Tender, Rovsing's Sign Present Back: Present: Normal Inspection. No: CVA Tenderness, Midline Tenderness, Paraspinal Tenderness Upper Extremity: Present: Normal Inspection. No: Cyanosis, Edema Lower Extremity: Present: Normal Inspection. No: Edema Neurological: Present: GCS=15, CN II-XII Intact, Speech Normal Skin: Present: Warm, Dry, Normal Color. No: Rashes Psychiatric: Present: Alert, Oriented x 3, Normal Insight, Normal Concentration Medical Decision Making ED Course and Treatment: 12/30/17 18:30 PT in ED for stated history. She was not in any distress in ED. She had mild epigastric tenderness on evaluation. She vomited once in ED s/p medication and given another antiemesis. On re evaluation she notes improvement. Pt also complained of tight tower lateral incisor toothache. States she have a Dentist, but waiting to get paid to go see the Dentist. States pain started few days ago . Mild swelling noted surrounding the right sided lateral incisor. She was treated with Amoxicillin. Lab was all wnl. Abdominal CT IMPRESSION: No acute findings related to/accounting for the clinical presentation. Additional benign and/or incidental findings described above. Stable cul-de-sac mass felt to represent hydrosalpinx. No significant interval change compared to the prior examination(s). Result was DW the pt and she was referred to the clinic/Dentist. - Lab Interpretations Lab Results: 12/30/17 11:00 12/30/17 11:00 Lab Results 12/30/17 11:00: Sodium 139, Potassium 3.9, Chloride 108 H, Carbon Dioxide 27, Anion Gap 9 L, BUN 8, Creatinine 0.6 L, Est GFR ( Amer) > 60, Est GFR (Non-Af Amer) > 60, Random Glucose 104, Calcium 8.7, Magnesium 1.8, Total Sami irubin 0.4, AST 17, ALT 29, Alkaline Phosphatase 63, Total Protein 6.8, Albumin 3.7, Globulin 3.0, Albumin/Globulin Ratio 1.2, Lipase 435 H 12/30/17 11:00: PT 11.5, INR 1.00, APTT 26.8 12/30/17 11:00: WBC 6.8 D, RBC 4.03, Hgb 11.4 L, Hct 35.5 L, MCV 88.1, MCH 28.3, MCHC 32.1, RDW 15.0 H, Plt Count 292, MPV 9.3, Gran % 69.0 H, Lymph % (Auto) 20.6 L, [place] % (Auto) 7.5 H, Eos % (Auto) 2.8, Baso % (Auto) 0.1, Gran # 4.68, Lymph # (Auto) 1.4, [place] # (Auto) 0.5, Eos # (Auto) 0.2, Baso # (Auto) 0.01 12/30/17 10:50: Urine Color Yellow, Urine Appearance Clear, Urine pH 6.0, Ur Specific [place] >= 1.030, Urine Protein Trace H, Urine Glucose (UA) Negative, Urine Ketones Negative, Urine Blood Small H, Urine Nitrate Negative, Urine Bilirubin Negative, Urine Urobilinogen 0.2, Ur Leukocyte Esterase Trace H, Urine RBC 5 - 10, Urine WBC 2 - 5, Ur Epithelial Cells 6 - 8, Amorphous Sediment Few, Urine Bacteria Many, Urine Other Uyeast - RAD Interpretation Radiology Orders: 12/30/17 11:33 ABD & PELVIS IV CONTRAST ONLY [CT] Stat - Medication Orders Current Medication Orders: Discontinued Medications Famotidine (Pepcid) 20 mg IVP STAT STA Stop: 12/30/17 10:46 Last Admin: 12/30/17 11:00 Dose: 20 mg IVP Administration Document 12/30/17 11:00 EQ (Rec: 12/30/17 11:00 EQ [id number]) Charges for Administration # of IVP Administrations 1 Sodium Chloride (Sodium Chloride 0.9%) 1,000 mls @ 1,000 mls/hr IV .Q1H STA Stop: 12/30/17 11:44 Last Admin: 12/30/17 10:59 Dose: 1,000 mls/hr eMAR Start Stop Document 12/30/17 10:59 EQ (Rec: 12/30/17 11:00 EQ [id number]) Intravenous Solution Start Date 12/30/17 Start Time 10:59 Ondansetron HCl (Zofran Inj) 4 mg IVP STAT STA Stop: 12/30/17 10:46 Last Admin: 12/30/17 11:00 Dose: 4 mg IVP Administration Document 12/30/17 11:00 EQ (Rec: 12/30/17 11:00 EQ [id number]) Charges for Administration # of IVP Administrations 1 Ondansetron HCl (Zofran Inj) 4 mg IVP STAT STA Stop: 12/30/17 12:25 Disposition/Present on Arrival - Present on Arrival Any Indicators Present on Arrival: No History of DVT/PE: No History of Uncontrolled Diabetes: Yes Urinary Catheter: No History of Decub. Ulcer: No History Surgical Site Infection Following: None - Disposition Have Diagnosis and Disposition been Completed?: Yes Diagnosis: Abdominal pain, Tooth caries Disposition: HOME/ ROUTINE Disposition Time: 14:00 Patient Plan: Discharge Condition: STABLE Discharge Instructions (ExitCare): Acute Abdomen (Belly Pain), Adult (DC), Nausea and Vomiting, Adult (DC), Dental Pain Additional Instructions: Follow up with a Dentist/PMD Return to ED for any new or worsening symptoms Prescriptions: RX: Amoxicillin [Amoxil 500 mg Cap] 500 mg PO TID #21 cap Dicyclomine [Bentyl] 20 mg PO BID #15 tab Ondansetron ODT [Zofran ODT] 4 mg PO Q6 #6 odt Referrals: Jessika Sainz MD [Medical Doctor] - Follow up with primary Forms: [employer] (Jordanian)
[2017-12-30 14:22] VITALS: BP 156/94; O2SAT 97
--- NOTE | 2017-12-30 14:26 | CARD ---
APPROVED REPORT Date of service: 12/30/2017 EKG Measurement Heart [id number] NM [id number] [id number] <Conclusion> Normal sinus rhythm Normal ECG
== END 2017-12-30 14:39 | disposition home or self-care (01) ==
LOC: ED 09:37
DX: R10.12 Left upper quadrant pain (principal); K02.9 Dental caries, unspecified; E11.9 Type 2 diabetes mellitus without complications; E03.9 Hypothyroidism, unspecified; F17.210 Nicotine dependence, cigarettes, uncomplicated
CPT/HCPCS: 74177; 80053; 81001; 83690; 83735; 85025; 85610; 85730; 87086; 93005; 96361; 96374; 96375; 99284; J2405; J7030; Q9967

== ENCOUNTER 2018-04-01 12:46 | Emergency (ER) | payer MEDICAID ==
[2018-04-01 13:22] VITALS: BMI 34.4
[2018-04-01 13:24] VITALS: RESP 18
[2018-04-01] MEDS ORDERED: Sodium Chloride 0.9% 1,000 ML IV STA ×2 (13:26→17:32)
[2018-04-01 14:06] LABS: BASO # 0.01 K/mm3 (0.0-2.0); BASO % 0.1 % (0.0-3.0); EOS # 0.1 (0.0-0.7); EOS % 1.3 % (1.5-5.0); HEMOGLOBIN 12.5 g/dL (12.0-16.0); LYMPH # 1.6 (1.2-3.4); LYMPH % 19.3 % (22.0-35.0); MEAN CELL VOLUME 85.9 fl (80.0-105.0); MEAN CORPUSCULAR HEMOGLOBIN 27.9 pg (25.0-35.0); MEAN CORPUSCULAR HGB CONC 32.5 g/dl (31.0-37.0); MEAN PLATELET VOLUME 9.2 fl (7.0-11.0); MONO # 0.7 (0.1-0.6); MONO % 8.3 % (1.0-6.0); RBC 4.48 10^6/uL (3.5-6.1); RED CELL DISTRIBUTION WIDTH 15.3 % (11.5-14.5); WHITE BLOOD COUNT 8.5 10^3/uL (4.5-11.0)
[2018-04-01 14:12] LABS: ALB/GLOB RATIO 1.2 (1.1-1.8); ALBUMIN 4.3 g/dL (3.0-4.8); ALT/SGPT 26 U/L (7-56); AMYLASE 110 U/L (35-125); AST/SGOT 17 U/L (14-36); BLOOD UREA NITROGEN 10 mg/dL (7-21); CALCIUM 9.3 mg/dL (8.4-10.5); GFR NON-AFRICAN AMERICAN > 60; LIPASE 392 U/L (23-300)
[2018-04-01 14:22] LABS: INR 1.07; PARTIAL THROMBOPLASTIN TIME 31.6 Seconds (26.9-38.3); PROTHROMBIN TIME 11.9 SECONDS (9.4-12.5); TROPONIN I < 0.01 ng/mL
[2018-04-01 15:56] LABS: URINE BILIRUBIN NEGATIVE (NEGATIVE); URINE BLOOD LARGE (NEGATIVE); URINE GLUCOSE (UA) NEGATIVE (NEGATIVE); URINE LEUKOCYTE ESTERASE TRACE Leu/uL (NEGATIVE); URINE PROTEIN TRACE mg/dL (<30 mg/dL); URINE UROBILINOGEN 0.2 E.U./dL (<1 E.U./dL)
[2018-04-01 15:57] LABS: URINE APPEARANCE CLEAR (CLEAR); URINE COLOR YELLOW (YELLOW)
[2018-04-01 16:04] LABS: URINE RBC 20 - 25 /hpf (0-2)
[2018-04-01 16:05] LABS: URINE BACTERIA TRACE /hpf
--- NOTE | 2018-04-01 16:24 | CT ---
Date of service: 04/01/2018 PROCEDURE: CT Abdomen and Pelvis with contrast HISTORY: epigastric abdominal pain COMPARISON: None. TECHNIQUE: Contrast dose: 150 cc of Omni 350 Radiation dose: Total exam DLP = 1064.19 mGy-cm. This CT exam was performed using one or more of the following dose reduction techniques: Automated exposure control, adjustment of the mA and/or kV according to patient size, and/or use of iterative reconstruction technique. FINDINGS: LOWER THORAX: Unremarkable. LIVER: Unremarkable. No gross lesion or ductal dilatation. GALLBLADDER AND BILE DUCTS: Clips are seen in the gallbladder fossa PANCREAS: Unremarkable. No gross lesion or ductal dilatation. SPLEEN: Unremarkable. ADRENALS: There is a 2 cm left adrenal mass. This is most likely an adrenal adenoma. KIDNEYS AND URETERS: Unremarkable. No hydronephrosis. No solid mass. VASCULATURE: Unremarkable. No aortic aneurysm. No aortic atherosclerotic calcification or mural plaque present. BOWEL: Unremarkable. No obstruction. No gross mural thickening. APPENDIX: Normal appendix. PERITONEUM: Unremarkable. No free fluid. No free air. LYMPH NODES: Unremarkable. No enlarged lymph nodes. BLADDER: Unremarkable. REPRODUCTIVE: There is a 3.5 cm fibroid in the uterine fundus. There are 2 contiguous pelvic cysts dorsal to the uterus measuring 4 x 6 cm combined BONES: No acute fracture. OTHER FINDINGS: None. IMPRESSION: No acute intra-abdominal findings
--- NOTE | 2018-04-01 16:35 | ED PDOC ---
Arrival/HPI - General Chief Complaint: Abdominal Pain Time Seen by Provider: 04/01/18 12:59 - History of Present Illness Narrative History of Present Illness (Text): 04/01/18 16:47 42 year old female with PMH of ovarian cysts, fibroids, gastric ulcers, DM, hypothyroidism presents to emergency department complaining of abdominal pain x 2 days. Abdominal pain is sharp, burning, located periumbilically and epigastrically. Associated vomiting and diarrhea with inability to tolerate PO. States that she was recently told by her OBGYN that her CA125 was elevated and has an appointment on Saturday to schedule for fibroid removal surgery. Currently menstruating. No recent travel, antibiotic use, recent travel, or sick contacts. PSH of cholecystectomy. Denies fevers, chills, chest pain, SOB, constipation Past Medical History - Provider Review Nursing Documentation Reviewed: Yes - Infectious Disease Hx of Infectious Diseases: None - Cardiac Hx Cardiac Disorders: No - Pulmonary Hx Respiratory Disorders: No - Neurological Hx Neurological Disorder: No - HEENT Hx HEENT Disorder: No - Renal Hx Renal Disorder: No - Endocrine/Metabolic Hx Endocrine Disorders: Yes Hx Diabetes Mellitus Type 2: Yes Hx Hypothyroidism: Yes - Hematological/Oncological Hx Blood Disorders: Yes Hx Anemia: Yes - Integumentary Hx Dermatological Disorder: No - Musculoskeletal/Rheumatological Hx Musculoskeletal Disorders: Yes Hx Arthritis: Yes Hx Falls: Yes Hx Fractures: Yes (left tibia as a child) Hx Unsteady Gait: Yes - Gastrointestinal Hx Gastrointestinal Disorders: No - Genitourinary/Gynecological Hx Genitourinary Disorders: No - Psychiatric Hx Psychophysiologic Disorder: No Hx Anxiety: Yes Hx Depression: Yes Hx Substance Use: Yes (MARIJUANA , DENIES COCAINE, ET DUST IN THE PAST) - Surgical History Hx Cholecystectomy: Yes Other/Comment: lt tibia sx with pins - Anesthesia Hx Anesthesia: Yes Hx Anesthesia Reactions: No Hx Malignant Hyperthermia: No Family/Social History - Physician Review Nursing Documentation Reviewed: Yes Family/Social History: No Known Family HX Smoking Status: Light Smoker < 10 Cigarettes Daily Hx Alcohol Use: No Hx Substance Use: Yes (MARIJUANA , DENIES COCAINE, TE DUST IN THE PAST) Substance used: thc Allergies/Home Meds Allergies/Adverse Reactions: Allergies tomato Allergy (Verified 12/07/16 13:32) RASH Home Medications: Home Meds Medication Instructions Recorded Confirmed Ergocalciferol (Vitamin D2) 1 cap PO QWK 04/01/18 04/01/18 [Vitamin D2] Gabapentin [Neurontin] 500 mg PO TID 04/01/18 04/01/18 Levothyroxine [Synthroid] 25 mcg PO DAILY 04/01/18 04/01/18 MetFORMIN ER [Glucophage XR] 500 mg PO DAILY 04/01/18 04/01/18 amLODIPine [Norvasc] 5 mg PO DAILY 04/01/18 04/01/18 Review of Systems - Physician Review All systems were reviewed & negative as marked: Yes - Review of Systems Constitutional: Normal. absent: Fevers Eyes: Normal. absent: Vision Changes ENT: Normal. absent: Sinus Congestion Respiratory: Normal. absent: SOB, Cough Cardiovascular: Normal. absent: Chest Pain, Palpitations, Syncope Gastrointestinal: Abdominal Pain (epigastric and suprapubic), Stool Changes, Diarrhea, Nausea, Vomiting, Appetite Changes Genitourinary Female: Normal. absent: Dysuria, Frequency, Vaginal Bleeding, Vaginal Discharge Musculoskeletal: Normal. absent: Arthralgias, Back Pain Skin: Normal. absent: Rash Neurological: Normal. absent: Headache, Dizziness Endocrine: Normal Hemo/Lymphatic: Normal Psychiatric: Normal Physical Exam Vital Signs Reviewed: Yes Vital Signs Temp Pulse Resp BP Pulse Ox 04/01/18 13:22 98.5 F 77 18 135/74 99 Temperature: Afebrile Blood Pressure: Normal Pulse: Regular Respiratory Rate: Normal Appearance: Positive for: Well-Appearing, Non-Toxic, Comfortable Pain Distress: None Mental Status: Positive for: Alert and Oriented X 3 - Systems Exam Head: Present: Atraumatic, Normocephalic Pupils: Present: PERRL Extroacular Muscles: Present: EOMI Conjunctiva: Present: Normal Mouth: Present: Moist Mucous Membranes Pharnyx: Present: Normal. No: ERYTHEMA, EXUDATE Nose (External): Present: Atraumatic Nose (Internal): Present: Normal Inspection Neck: Present: Normal Range of Motion. No: Meningeal Signs, MIDLINE TENDERNESS, Paraspinal Tenderness Respiratory/Chest: Present: Clear to Auscultation, Good Air Exchange. No: Respiratory Distress, Accessory Muscle Use Cardiovascular: Present: Regular Rate and Rhythm, Normal S1, S2, Peripheal Pulses Present. No: Murmurs Abdomen: Present: Tenderness (epigastric and suprapubic), Normal Bowel Sounds. No: Distention, Peritoneal Signs Back: Present: Normal Inspection Upper Extremity: Present: Normal Inspection, Normal ROM, NORMAL PULSES, Neurovascularly Intact, Capillary Refill < 2s. No: Cyanosis, Edema, Temperature Abnormalties Lower Extremity: Present: Normal Inspection, NORMAL PULSES, Normal ROM, Neurovascularly Intact, Capillary Refill < 2 s. No: Edema, Temperature Abnormalties Neurological: Present: GCS=15, CN II-XII Intact, Speech Normal, Motor Func Grossly Intact, Normal Sensory Function, Gait Normal Skin: Present: Warm, Dry, Normal Color. No: Rashes Lymphatic: No: Cervical Adenopathy Psychiatric: Present: Alert, Oriented x 3, Normal Insight, Normal Concentration, Normal Affect, Normal Mood Medical Decision Making ED Course and Treatment: 04/01/18 16:38 Initial Plan: * CBC, CMP * Troponin * Lipase, Amylase * Coags * Urinalysis, culture * EKG * CXR * Transvaginal US * CT Abd/Pelvis with IV contrast * IVF * Toradol * Pepcid * Zofran On initial exam, patient well-appearing but uncomfortable. No active vomiting. C/o epigastric pain. 16:45 Patient reports resolution of pain and nausea. States only a "burning sensation" remains. EKG rate, NSR, normal intervals, no stemi or other signs of acute ischemia Troponin neg Lipase 392, labwork otherwise unremarkable UA with trace leuk esterase 17:18 CT negative Abdominal US negative Transvaginal ultrasound shows fibroid and pelvic cyst. Advised to followup with OBGYN, patient given report. Case discussed with ED attending Dr. Kent, who advises discharge home if patient is able to tolerate PO, with prescription for Zofran Pt given juice to drink Will give prescription for keflex on discharge secondary to urinary complaints and trace leuk esterase. 17:36 Patient vomited immediately after PO challenge. Spoke with Dr. Blake, hospitalist, who refused patient admission at this time, recommends another dose of Zofran and a second PO challenge in 30minutes. 19:00 Pt tolerated PO without difficulty. Carrots, pudding, and water. Patient very well appearing in no acute distress, asking to be discharged home. Will discharge home with prescription for Zofran and Keflex, with instructions to followup with OBGYN, PMD, and GI. Pt verbalizes understanding of discussion and states she will followup. Dr. Kent agrees with plan of care and disposition. Diagnostic testing results and plan of care discussed with patient. Strict instructions given regarding prescription use, importance of followup, and signs/symptoms to return to ER including return of abdominal pain, intractable vomiting, chest pain, SOB, or any other new/worsening symptoms. Pt verbalized understanding of discussion. Patient is A&Ox3, ambulating with steady gait, with vital signs stable for discharge. - Lab Interpretations Lab Results: PT 11.9 SECONDS (9.4-12.5) 04/01/18 13:46 INR 1.07 04/01/18 13:46 APTT 31.6 Seconds (26.9-38.3) 04/01/18 13:46 Troponin I < 0.01 ng/mL 04/01/18 13:46 Total Bilirubin 0.5 mg/dL (0.2-1.3) 04/01/18 13:46 AST 17 U/L (14-36) 04/01/18 13:46 ALT 26 U/L (7-56) 04/01/18 13:46 Alkaline Phosphatase 70 U/L (38-126) 04/01/18 13:46 Total Protein 7.8 g/dL (5.8-8.3) 04/01/18 13:46 Albumin 4.3 g/dL (3.0-4.8) 04/01/18 13:46 Globulin 3.5 gm/dL 04/01/18 13:46 Albumin/Globulin Ratio 1.2 (1.1-1.8) 04/01/18 13:46 Amylase 110 U/L (35-125) 04/01/18 13:46 Lipase 392 U/L (23-300) H 04/01/18 13:46 Urine Color Yellow (YELLOW) 04/01/18 15:30 Urine Appearance Clear (CLEAR) 04/01/18 15:30 Urine pH 6.0 (4.7-8.0) 04/01/18 15:30 Ur Specific [place] >= 1.030 (1.005-1.035) 04/01/18 15:30 Urine Protein Trace mg/dL (<30 mg/dL) H 04/01/18 15:30 Urine Glucose (UA) Negative mg/dL (NEGATIVE) 04/01/18 15:30 Urine Ketones Negative mg/dL (NEGATIVE) 04/01/18 15:30 Urine Blood Large (NEGATIVE) H 04/01/18 15:30 Urine Nitrate Negative (NEGATIVE) 04/01/18 15:30 Urine Bilirubin Negative (NEGATIVE) 04/01/18 15:30 Urine Urobilinogen 0.2 E.U./dL (<1 E.U./dL) 04/01/18 15:30 Ur Leukocyte Esterase Trace Jesus/uL (NEGATIVE) H 04/01/18 15:30 Urine RBC 20 - 25 /hpf (0-2) H 04/01/18 15:30 Urine WBC 2 - 5 /hpf (0-6) 04/01/18 15:30 Ur Epithelial Cells 10 - 12 /hpf (0-5) H 04/01/18 15:30 Urine Bacteria Trace /hpf (NONE) 04/01/18 15:30 I have reviewed the lab results: Yes - RAD Interpretation Narrative RAD Interpretations (Text): 04/01/18 16:32 CT Abd/Pelvis w/IV contrast: FINDINGS: LOWER THORAX: Unremarkable. LIVER: Unremarkable. No gross lesion or ductal dilatation. GALLBLADDER AND BILE DUCTS: Clips are seen in the gallbladder fossa PANCREAS: Unremarkable. No gross lesion or ductal dilatation. SPLEEN: Unremarkable. ADRENALS: There is a 2 cm left adrenal mass. This is most likely an adrenal adenoma. KIDNEYS AND URETERS: Unremarkable. No hydronephrosis. No solid mass. VASCULATURE: Unremarkable. No aortic aneurysm. No aortic atherosclerotic calcification or mural plaque present. BOWEL: Unremarkable. No obstruction. No gross mural thickening. APPENDIX: Normal appendix. PERITONEUM: Unremarkable. No free fluid. No free air. LYMPH NODES: Unremarkable. No enlarged lymph nodes. BLADDER: Unremarkable. REPRODUCTIVE: There is a 3.5 cm fibroid in the uterine fundus. There are 2 contiguous pelvic cysts dorsal to the uterus measuring 4 x 6 cm combined BONES: No acute fracture. OTHER FINDINGS: None. IMPRESSION: No acute intra-abdominal findings CXR: FINDINGS: LUNGS: No active pulmonary disease. PLEURA: No significant pleural effusion identified, no pneumothorax apparent. CARDIOVASCULAR: No aortic atherosclerotic calcification present. Normal cardiac size. No pulmonary vascular congestion. OSSEOUS STRUCTURES: No significant abnormalities. VISUALIZED UPPER ABDOMEN: Normal. OTHER FINDINGS: None. IMPRESSION: No active disease. Transvaginal US: FINDINGS: UTERUS: Measures 12.68 x 6.65 x 7.23 cm. Normal in size and appearance. There is a fundal fibroid measuring 2.94 x 3.18 x 3.09 cm ENDOMETRIUM: Measures 9.6 mm in diameter. Unremarkable. CERVIX: No cervical abnormality identified. RIGHT OVARY: Not seen. There is a septated cyst dorsal to the uterus measuring 7.06 x 3.14 x 2.88 cm. This is similar to the previous study LEFT OVARY: Not visualized FREE FLUID: No significant free fluid noted. OTHER FINDINGS: None. IMPRESSION: There is a septated cyst dorsal to the uterus measuring 7.06 x 3.14 x 2.88 cm. This is similar to the previous study Gallbladder/Pancreas US: FINDINGS: LIVER: Measures 15.35 x 12.11 x 18.14 cm in length. Normal echogenicity of the liver parenchyma. No mass. No intrahepatic bile duct dilatation. GALLBLADDER: Removed COMMON BILE DUCT: Measures 5 mm. No stones. No dilatation. PANCREAS: Unremarkable as visualized. No mass. No ductal dilatation. RIGHT KIDNEY: Measures 11.32 x 5.33 x 5.33 cm in length. Normal echogenicity. No calculus, mass, or hydronephrosis. AORTA: No aneurysmal dilatation. IVC: Unremarkable. OTHER FINDINGS: None . IMPRESSION: No acute findings Radiology Orders: 04/01/18 13:24 CHEST PORTABLE [RAD] Stat 04/01/18 13:25 ABD & PELVIS IV CONTRAST ONLY [CT] Stat 04/01/18 13:59 TRANSVAGINAL [US] Stat 04/01/18 14:15 GALLBLADDER & PANCREAS [US] Stat Strategic Manager: Radiologist - EKG Interpretation EKG Interpretation (Text): 04/01/18 16:35 Rate 68; NSR; Normal Intervals; No STEMI or other signs of acute ischemia Interpreted by ED Physician: Yes Type: 12 lead EKG - Medication Orders Current Medication Orders: Discontinued Medications Famotidine (Pepcid) 20 mg IVP STAT STA Stop: 04/01/18 13:25 Last Admin: 04/01/18 14:42 Dose: 20 mg IVP Administration Document 04/01/18 14:42 BENITO (Rec: 04/01/18 14:42 BENITO [id number]) Charges for Administration # of IVP Administrations 1 Sodium Chloride (Sodium Chloride 0.9%) 1,000 mls @ 999 mls/hr IV .Q1H1M STA Stop: 04/01/18 14:26 Last Admin: 04/01/18 13:52 Dose: 999 mls/hr eMAR Start Stop Document 04/01/18 13:52 LA (Rec: 04/01/18 13:52 LA [id number]) Intravenous Solution Start Date 04/01/18 Start Time 13:52 End Date 04/01/18 End time 13:53 Total Infusion Time 1 Ketorolac Tromethamine (Toradol) 15 mg IVP STAT STA Stop: 04/01/18 13:25 Last Admin: 04/01/18 14:42 Dose: 15 mg MAR Pain Assessment Document 04/01/18 14:42 LA (Rec: 04/01/18 14:42 LA [id number]) Pain Reassessment Is this a pain reassessment? No Sleep Is patient sleeping during reassessment? No Presence of Pain Presence of Pain Yes Location Pain Location Body Site Abdomen IVP Administration Document 04/01/18 14:42 LA (Rec: 04/01/18 14:42 LA [id number]) Charges for Administration # of IVP Administrations 1 Ondansetron HCl (Zofran Inj) 4 mg IVP STAT STA Stop: 04/01/18 13:25 Last Admin: 04/01/18 14:41 Dose: 4 mg IVP Administration Document 04/01/18 14:41 LA (Rec: 04/01/18 14:41 LA [id number]) Charges for Administration # of IVP Administrations 1 Disposition/Present on Arrival - Present on Arrival Any Indicators Present on Arrival: Yes History of DVT/PE: No History of Uncontrolled Diabetes: Yes Urinary Catheter: No History of Decub. Ulcer: No History Surgical Site Infection Following: None - Disposition Have Diagnosis and Disposition been Completed?: Yes Diagnosis: Elevated lipase, Nausea & vomiting, UTI (urinary tract infection) Disposition: HOME/ ROUTINE Disposition Time: 19:00 Patient Plan: Discharge Patient Problems: Current Active Problems Problem Status Onset Elevated lipase Acute Nausea & vomiting Acute UTI (urinary tract infection) Acute Condition: IMPROVED Discharge Instructions (ExitCare): Acute Abdomen (Belly Pain), Nausea and Vomiting, Adult (DC), Lipase Blood Test Additional Instructions: Increase fluids Zofran 4mg every 8 hours as needed for nausea Keflex every 12 hours for 7 days Continue home medications as prescribed Followup with GI within 2 days Followup with primary within 2 days Return to ER with any new/worsening symptoms Prescriptions: Cephalexin [Keflex] 500 mg PO BID 7 Days #14 capsule Ondansetron ODT [Zofran ODT] 4 mg PO Q8H #8 odt Referrals: Reyna Sanders MD [Primary Care Provider] - Follow up with primary Anderson Oliveros MD [Staff Provider] - Follow up with primary Forms: [facility] [employer] (Bengali), WORK NOTE
--- NOTE | 2018-04-01 16:59 | RAD ---
Date of service: 04/01/2018 HISTORY: upper abdominal pain COMPARISON: No prior. FINDINGS: LUNGS: No active pulmonary disease. PLEURA: No significant pleural effusion identified, no pneumothorax apparent. CARDIOVASCULAR: No aortic atherosclerotic calcification present. Normal cardiac size. No pulmonary vascular congestion. OSSEOUS STRUCTURES: No significant abnormalities. VISUALIZED UPPER ABDOMEN: Normal. OTHER FINDINGS: None. IMPRESSION: No active disease.
--- NOTE | 2018-04-01 17:03 | US ---
Date of service: 04/01/2018 HISTORY: elevated lipase COMPARISON: None. TECHNIQUE: Sonographic evaluation of the right upper quadrant of the abdomen. FINDINGS: LIVER: Measures 15.35 x 12.11 x 18.14 cm in length. Normal echogenicity of the liver parenchyma. No mass. No intrahepatic bile duct dilatation. GALLBLADDER: Removed COMMON BILE DUCT: Measures 5 mm. No stones. No dilatation. PANCREAS: Unremarkable as visualized. No mass. No ductal dilatation. RIGHT KIDNEY: Measures 11.32 x 5.33 x 5.33 cm in length. Normal echogenicity. No calculus, mass, or hydronephrosis. AORTA: No aneurysmal dilatation. IVC: Unremarkable. OTHER FINDINGS: None . IMPRESSION: No acute findings
--- NOTE | 2018-04-01 17:07 | US ---
Date of service: 04/01/2018 HISTORY: lower abdominal pain COMPARISON: Ultrasound 12/07/2016 TECHNIQUE: Transvaginal FINDINGS: UTERUS: Measures 12.68 x 6.65 x 7.23 cm. Normal in size and appearance. There is a fundal fibroid measuring 2.94 x 3.18 x 3.09 cm ENDOMETRIUM: Measures 9.6 mm in diameter. Unremarkable. CERVIX: No cervical abnormality identified. RIGHT OVARY: Not seen. There is a septated cyst dorsal to the uterus measuring 7.06 x 3.14 x 2.88 cm. This is similar to the previous study LEFT OVARY: Not visualized FREE FLUID: No significant free fluid noted. OTHER FINDINGS: None. IMPRESSION: There is a septated cyst dorsal to the uterus measuring 7.06 x 3.14 x 2.88 cm. This is similar to the previous study
[2018-04-01 19:39] LABS: T4 9.1 ug/dL (5.5-11.0)
[2018-04-01 19:53] LABS: T3 1.45 ng/mL (0.97-1.69)
[2018-04-01 20:01] VITALS: BP 118/75; PULSE 68; TEMP 98.5; O2SAT 99
--- NOTE | 2018-04-01 20:14 | CARD ---
APPROVED REPORT Date of service: 04/01/2018 EKG Measurement Heart [id number] <Conclusion> Normal sinus rhythm Normal ECG
== END 2018-04-01 20:00 | disposition home or self-care (01) ==
LOC: ED 12:46
DX: N39.0 Urinary tract infection, site not specified (principal); R11.2 Nausea with vomiting, unspecified; R74.8 Abnormal levels of other serum enzymes; E11.9 Type 2 diabetes mellitus without complications; E03.9 Hypothyroidism, unspecified; D25.9 Leiomyoma of uterus, unspecified
CPT/HCPCS: 71045; 74177; 76705; 76830; 80053; 81001; 81025; 82150; 82550; 83615; 83690; 84436; 84443; 84480; 84484; 85025; 85610; 85730; 87086; 93005; 96361; 96374; 96375; 96376; 99284; J1885; J2405; J7030; Q9967